=== PATIENT | male | born 1955 | race African-American/Black ===

== ENCOUNTER 2018-01-11 18:36 | Emergency (ER) | payer OTHER ==
[~2018-01-11] VITALS: Ht 182.9 cm; Wt 99.8 kg
[2018-01-11 19:17] VITALS: BP 146/77
--- NOTE | 2018-01-11 19:20 | NUR ---
TO LOBBY A/W VIA W/C, TOSHA ANG NOTED
[2018-01-11 19:21] VITALS: BP 146/77
--- NOTE | 2018-01-11 21:30 | NUR ---
PATIENT LEFT WITHOUT BEING SEEN BY DR. GRANDE. NO FURTHER CARE PROVIDED FOR PATIENT.
== END 2018-01-11 21:30 | disposition left against medical advice (07) ==
LOC: MED 18:36
DX: Z76.0 Encounter for issue of repeat prescription (principal); Z53.21 Procedure and treatment not carried out due to patient leaving prior to being seen by health care provider

== ENCOUNTER 2020-09-19 18:05 | Inpatient (IN) | payer MEDICARE, MEDICAID, SELFPAY ==
[~2020-09-19] VITALS: Ht 177.8 cm; Wt 90.7 kg
[2020-09-19 18:22] VITALS: BP 126/70
--- NOTE | 2020-09-19 18:31 | NUR ---
65 yo m [address]le from [facility] c/o poor appetite x 4 days. pt with total incontinence. in ed, pt is cooperative, aox2. clear breath sounds. abdomen soft, nontender. lower extremities spastic. pt changed into gown. positioned comfortably in bed with 2 siderails up. ermd made aware of pt status. pmh: partial paralysis , L arm meds: norco nka
[2020-09-19] MEDS ORDERED: MORPHINE SULFATE 4 MG/ML SYR IVP ONE (18:50)
--- NOTE | 2020-09-19 19:22 | NUR ---
Returned from CT.
[2020-09-19 19:23] LABS: BASOPHILS % (AUTO) 0.2 % (0.0-2.0); HEMATOCRIT 36.2 % (36-52); HEMOGLOBIN 11.9 g/dL (12.0-18.0); LYMPHOCYTES # (AUTO) 0.5 K/uL (2.0-11.5); LYMPHOCYTES % (AUTO) 4.5 % (20.5-51.1); MEAN CORPUSCULAR HEMOGLOBIN 29 pg (27-31); MEAN CORPUSCULAR HGB CONC 33 g/dL (33-37); MEAN CORPUSCULAR VOLUME 89.4 fL (80-94); MONOCYTES # (AUTO) 0.8 K/uL (0.8-1.0); MONOCYTES % (AUTO) 7.7 % (1.7-9.3); NEUTROPHILS # (AUTO) 8.8 K/uL (1.8-7.7); NEUTROPHILS % (AUTO) 87.6 % (42.2-75.2); PLATELET COUNT (AUTO) 219 K/uL (140-450); RED BLOOD CELL COUNT(AUTO) 4.05 MIL/uL (4.20-6.10); RED CELL DISTRIBUTION WIDTH 16.1 % (11.6-13.7)
[2020-09-19 19:57] LABS: ALBUMIN 3.2 g/dL (3.4-5.0); ANION GAP 24.9 (8-16); CARBON DIOXIDE 17.1 mmol/L (21-32); TOTAL BILIRUBIN 0.4 mg/dL (0.0-1.0)
[2020-09-19 20:17] LABS: CREATININE 20.8 mg/dL (0.6-1.3)
--- NOTE | 2020-09-19 20:18 | NUR ---
PT. SPIT UP BROWN LIQUID.
[2020-09-19] MEDS ORDERED: ONDANSETRON 4 MG TAB ONE (20:24)
[2020-09-19] MEDS ORDERED: DEXTROSE 50% 50 ML SYR IVP ONE (20:25)
[2020-09-19] MEDS ORDERED: NACL 0.9% 1,000 ML IV ONE ×2 (20:25→23:50)
[2020-09-19] MEDS ORDERED: INSULIN REGULAR, HUMAN 100 UNIT/ML VIAL IVP ONE (20:25)
[2020-09-19] MEDS ORDERED: SODIUM POLYSTYRENE 15 GM/60 ML UDBTL PO ONE (20:25)
[2020-09-19] MEDS ORDERED: ONDANSETRON 4 MG ODT PO ONE (20:30)
[2020-09-19] MEDS ORDERED: MORPHINE SULFATE 4 MG/ML SYR ONE (20:33)
[2020-09-19] MEDS ORDERED: CALCIUM GLUCONATE 10% 1,000 MG in NACL 0.9% 50 ML IV ONE (20:45)
[2020-09-19] MEDS ORDERED: CALCIUM GLUCONATE 10% 1000 MG/10 ML VIAL ONE (20:56)
[2020-09-19 21:02] LABS: MAGNESIUM 3.6 mg/dL (1.8-2.4)
[2020-09-19 21:09] LABS: PHOSPHORUS 12.3 mg/dL (2.5-4.9)
[2020-09-19] MEDS ORDERED: FUROSEMIDE 100 MG/10 ML VIAL IVP ONE (21:10)
[2020-09-19] MEDS ORDERED: ALBUTEROL 0.083% 2.5 MG/3 ML NEBU INH ONE (21:10)
--- NOTE | 2020-09-19 21:25 | NUR ---
REPEAT EKG DONE
--- NOTE | 2020-09-19 21:30 | NUR ---
F/C PLACED WITH > 1,000 CC RETURNED, DAYNA URINE WITH SEDIMENT AND PUSS
--- NOTE | 2020-09-19 21:32 | NUR ---
SPOKE W/ LEESA , SCREED OPERATOR REGARDING PT INFORMATION , PER LEESA SHE WILL CALL BACK IN A FEW WITH AN AUTHORIZATION ONCE SHE SPEAKS W/ HER DOCTOR.
--- NOTE | 2020-09-19 21:40 | NUR ---
URINE AND DIANA (COVID) COLLECTED BY NELSON FROM LAB.
[2020-09-19 22:08] LABS: APPEARANCE,URINE CLEAR (CLEAR); BILIRUBIN,URINE NEGATIVE (NEGATIVE); BLOOD, URINE TRACE-I (NEGATIVE); COLOR,URINE YELLOW (YELLOW); LEUKOCYTE ESTERASE ,URINE 2+ (NEGATIVE); NITRITE, URINE POSITIVE (NEGATIVE); UGLUCOSE NEGATIVE (NEGATIVE)
[2020-09-19 22:20] LABS: RBC,URINE 0-5 /HPF (0-5)
[2020-09-19 22:58] LABS: ANION GAP 21.2 (8-16); CARBON DIOXIDE 19.6 mmol/L (21-32)
[2020-09-19 23:23] LABS: CREATININE 19.9 mg/dL (0.6-1.3); POTASSIUM 6.8 mmol/L (3.5-5.1)
[2020-09-19 23:35] LABS: URINE TOTAL PROTEIN 31.3 mg/dL (0-12)
--- NOTE | 2020-09-19 23:55 | NUR ---
VBG DRAWN. COLLECTED BY RT NOEL AT BEDSIDE.
[2020-09-20] VITALS (16 sets, daily range): BP systolic 88–155; BP diastolic 36–108
[2020-09-20] MEDS ORDERED: cefTRIAXone 1,000 MG VIAL ONE (00:14)
--- NOTE | 2020-09-20 00:25 | NUR ---
2200 ML OF URINE COLLECTED FROM DEL CID CATH BAG.
[2020-09-20] MEDS ORDERED: NACL 0.9% 1,000 ML IV ONE ×2 (00:50→02:35)
[2020-09-20] MEDS ORDERED: ACETAMINOPHEN 325 MG TAB PO PRN (01:15)
[2020-09-20] MEDS ORDERED: ONDANSETRON 4 MG/2 ML VIAL IVP PRN (01:15)
--- NOTE | 2020-09-20 02:00 | NUR ---
URINE OUTPUT 1500CC
--- NOTE | 2020-09-20 04:00 | NUR ---
1100 CC URINE OUTPUT.
--- NOTE | 2020-09-20 05:25 | NUR ---
SPOKE TO TWO OF PT. SISTERS JOHANNA KING AND CALEB CAN OVER THE PHONE. THEY REQUESTED AN UPDATE ON PT. J[place] K[place] WILLIS CAN [place], PHONE # .
--- NOTE | 2020-09-20 06:37 | NUR ---
LAB AT BEDSIDE
--- NOTE | 2020-09-20 07:13 | NUR ---
CARE ENDORSED TO RY BROWNING
[2020-09-20 07:18] LABS: BASOPHILS % (AUTO) 0.1 % (0.0-2.0); HEMOGLOBIN 11.8 g/dL (12.0-18.0); LYMPHOCYTES # (AUTO) 0.4 K/uL (2.0-11.5); LYMPHOCYTES % (AUTO) 3.9 % (20.5-51.1); MEAN CORPUSCULAR HEMOGLOBIN 30 pg (27-31); MEAN CORPUSCULAR HGB CONC 34 g/dL (33-37); MEAN CORPUSCULAR VOLUME 88.3 fL (80-94); MONOCYTES # (AUTO) 0.7 K/uL (0.8-1.0); MONOCYTES % (AUTO) 7.5 % (1.7-9.3); NEUTROPHILS # (AUTO) 8.3 K/uL (1.8-7.7); NEUTROPHILS % (AUTO) 88.5 % (42.2-75.2); PLATELET COUNT (AUTO) 211 K/uL (140-450); RED BLOOD CELL COUNT(AUTO) 3.97 MIL/uL (4.20-6.10); RED CELL DISTRIBUTION WIDTH 15.8 % (11.6-13.7); WHITE BLOOD COUNT (AUTO) 9.3 K/uL (4.8-10.8)
[2020-09-20 07:40] LABS: ANION GAP 23.2 (8-16); CARBON DIOXIDE 19.9 mmol/L (21-32); POTASSIUM 5.1 mmol/L (3.5-5.1)
--- NOTE | 2020-09-20 07:41 | NUR ---
Patient will be admitted to care of Dr Cornelius. Admited to ICU. Will go to room 8. Belongings list completed. Report to Lynn RAZA.
[2020-09-20 07:43] LABS: CREATININE 16.3 mg/dL (0.6-1.3)
--- NOTE | 2020-09-20 07:55 | NUR ---
PT TAKEN TO ICU ROOM 8 AT THIS TIME
--- NOTE | 2020-09-20 08:00 | NUR ---
PT ARRIVED ON UNIT, RECEIVED REPORT FROM FRICTION PAINT MACHINE TENDER NAM. PT IS ALERT AND ORIENTED X2. PT IS CURRENTLY ON ROOM AIR SATURATING 100%, SLIGHT WHEEZE NOTED THROUGHOUT LUNGS, NO SIGNS OF RESPIRATORY DISTRESS. PT IS SR ON THE MONITOR AT THIS TIME. FOR ACCESS, PT HAS ENEIDA 18 G AND R AC 20 G. PT HAS RENAL DIET ORDERED AT THIS TIME. DEL CID CATHETER IS IN PLACE, DRAINING CLEAR YELLOW URINE. EMPTIED 2000 ML OF URINE UPON ARRIVAL. PT IS CONTRACTED IN BOTH UPPER AND LOWER EXTREMITIES. TWO SACRAL PRESSURE ULCERS/SKIN TEARS NOTED, SEVERE DRY SKIN/SCALING NOTED ON BOTH LOWER EXTREMITIES, PICTURES TAKEN. TEMPERATURE 97.4 AXILLARY. VSS. HOB IS 30 DEG WITH BED IN LOW, LOCKED POSITION.
--- NOTE | 2020-09-20 08:20 | NUR ---
[facility]SA SWAB WALKED TO LAB BY DIAL REFINISHER DAVINA
--- NOTE | 2020-09-20 09:04 | NUR ---
HEPARIN ADMINISTERED PER ORDER, PT TOLERATED WELL. NS STARTED TKO.
--- NOTE | 2020-09-20 09:16 | NUR ---
LEFT MESSAGE FOR SISTER, NEXT OF KIN RANDAL AT [phone], REQUESTING CALL BACK IN ORDER TO COMPLETE ADMISSION ASSESSMENT.
--- NOTE | 2020-09-20 09:20 | NUR ---
DR. REN AND DR. WOLF SEEING PT
[2020-09-20] MEDS: NACL 0.9% 1,000 ML IV SCH ×2 (09:51→20:01)
--- NOTE | 2020-09-20 10:32 | NUR ---
ATTEMPTED TO REACH [facility] [phone] REGARDING CURRENT MEDS, NO ANSWER, LEFT MESSAGE
[2020-09-20] MEDS ORDERED: OXYC5TAB4 PO (11:00)
[2020-09-20] MEDS ORDERED: OXYC30TE PO (11:00)
[2020-09-20] MEDS ORDERED: AMLO10TA PO (11:00)
--- NOTE | 2020-09-20 12:34 | NUR ---
BEDSIDE SWALLOW SCREENING DONE, PT ABLE TO TAKE WATER SLOWLY WITHOUT S/S OF ASPIRATION.
--- NOTE | 2020-09-20 15:36 | NUR ---
NOTIFIED DR. WOLF OF US VENOUS BLE FINDINGS OF LEFT AND RIGHT DVT. DR. WOLF ORDERED ELIQUIS 10 BID.
[2020-09-20] MEDS: APIXABAN 2.5 MG TAB PO SCH (16:01)
--- NOTE | 2020-09-20 16:10 | NUR ---
MEDICATIONS ADMINISTERED PER ORDER, PT TOLERATED WELL. PT SITTING UP IN BED ABLE TO SWALLOW PILLS WITH NO EVIDENCE OF CHOKING OR COUGHING. TEMPERATURE 97.8 AXILLARY.
--- NOTE | 2020-09-20 17:23 | NUR ---
DR. LYSSA GAMING SEEING PT
--- NOTE | 2020-09-20 18:17 | NUR ---
PT PROVIDED WITH DINNER, SITTING UP IN BED, ABLE TO FEED SELF
--- NOTE | 2020-09-20 19:00 | NUR ---
PT REQUESTED DENTURES, BUT THERE IS NO RECORD OF THE PT HAVING DENTURES IN HIS POSSESSION PER THE ER. THE BELONGING'S LIST NOTED IN ER ALSO DOES NOT HAVE DENTURES ON THE LIST. CHECKED PT'S BELONGINGS AND NO DENTURES NOTED. WILL ENDORSE TO TAXICAB DISPATCHER.
--- NOTE | 2020-09-20 19:23 | NUR ---
HANDOFF GIVEN TO NUISANCE WILDLIFE TRAPPER RN FOR CONTINUITY OF CARE
--- NOTE | 2020-09-20 19:23 | NUR ---
RECEIVED PATIENT FROM AM SHIFT NURSE FOR CONTINUITY OF CARE. ALERT AND ABLE TO MAKE NEEDS KNOWN. RESPIRATIONS EVEN, UNLABORED. NO S/S RESPIRATORY DISTRESS. S1/S2 AUSCULTATED. SKIN WARM, DRY. SALINE LOCK TO RIGHT AC 20G PATENT/INTACT. IV SITE TO RIGHT UPPER ARM 18G PATENT/INTACT, INFUSING FLUIDS WELL. NO C/O PAIN. NO S/S ACUTE DISTRESS. ABDOMEN SOFT, NONTENDER, NONDISTENDED. BOWEL SOUNDS ACTIVE x4 QUADRANTS. DEL CID CATHETER PATENT WITH YELLOW URINE DRAINING TO GRAVITY. PLAN OF CARE DISCUSSED. FREQUENT ROUNDS BY ALL STAFF. SAFETY PRECAUTIONS IN PLACE. CALL LIGHT IN REACH AT ALL TIMES.
--- NOTE | 2020-09-20 21:15 | NUR ---
PATIENT RESTING COMFORTABLY IN BED WATCHING TV. IV FLUIDS INFUSING WELL. NO C/O PAIN. CALL LIGHT IN REACH.
[2020-09-20] MEDS ORDERED: AMIODARONE 150 MG in DEXTROSE 5% 100 ML IV ONE (23:40)
--- NOTE | 2020-09-20 23:40 | NUR ---
PATIENT WITH ELEVATED HEART RATE 160s AND IRREGULAR RHYTHM. PATIENT AROUSABLE WITH NO C/O CHEST PAIN. MD NOTIFIED. ORDERS RECEIVED.
[2020-09-20] MEDS ORDERED: AMIODARONE 150 MG/3 ML VIAL IV ONE (23:47)
[2020-09-20] MEDS ORDERED: AMIODARONE 450 MG/9 ML VIAL IV ONE (23:48)
[2020-09-21] VITALS (25 sets, daily range): BP systolic 93–144; BP diastolic 47–96
[2020-09-21] MEDS: AMIODARONE 450 MG in DEXTROSE 5% 250 ML IV SCH ×3 (00:20→10:51)
[2020-09-21] MEDS ORDERED: AMIODARONE 450 MG/9 ML VIAL IV ONE (00:25)
--- NOTE | 2020-09-21 01:00 | NUR ---
PATIENT CONTINUES ON AMIODARONE DRIP. PATIENT IS ASLEEP. FREQUENT ROUNDS BY ALL STAFF. CALL LIGHT IN REACH AT ALL TIMES.
--- NOTE | 2020-09-21 03:30 | NUR ---
PATIENT IS ASLEEP.
[2020-09-21] MEDS: NACL 0.9% 1,000 ML IV SCH ×2 (04:39→12:44)
--- NOTE | 2020-09-21 05:49 | NUR ---
GAVE SISTER RANDAL AN UPDATE ON HER BROTHERS STATUS.
[2020-09-21 06:03] LABS: BASOPHILS % (AUTO) 0.2 % (0.0-2.0); EOSINOPHILS % (AUTO) 0.1 % (0.0-4.0); HEMATOCRIT 31.4 % (36-52); HEMOGLOBIN 10.5 g/dL (12.0-18.0); LYMPHOCYTES # (AUTO) 0.5 K/uL (2.0-11.5); LYMPHOCYTES % (AUTO) 7.7 % (20.5-51.1); MEAN CORPUSCULAR HEMOGLOBIN 30 pg (27-31); MEAN CORPUSCULAR HGB CONC 34 g/dL (33-37); MEAN CORPUSCULAR VOLUME 88.3 fL (80-94); MONOCYTES # (AUTO) 0.6 K/uL (0.8-1.0); MONOCYTES % (AUTO) 10.1 % (1.7-9.3); NEUTROPHILS # (AUTO) 5.2 K/uL (1.8-7.7); NEUTROPHILS % (AUTO) 81.9 % (42.2-75.2); PLATELET COUNT (AUTO) 236 K/uL (140-450); RED BLOOD CELL COUNT(AUTO) 3.55 MIL/uL (4.20-6.10); RED CELL DISTRIBUTION WIDTH 15.7 % (11.6-13.7); WHITE BLOOD COUNT (AUTO) 6.4 K/uL (4.8-10.8)
[2020-09-21 06:06] LABS: ANION GAP 14.8 (8-16); CARBON DIOXIDE 26.6 mmol/L (21-32); POTASSIUM 3.4 mmol/L (3.5-5.1)
--- NOTE | 2020-09-21 07:17 | NUR ---
ENDORSED PATIENT TO AM SHIFT NURSE FOR CONTINUITY OF CARE.
--- NOTE | 2020-09-21 07:25 | NUR ---
RECEIVED HANDOFF FROM RN NEW GRADUATE RN. PT IS ALERT AND ORIENTED X2-3. PT IS CURRENTLY ON ROOM AIR SATURATING 100%. PT IS SR ON THE MONITOR AT THIS TIME. FOR ACCESS, PT HAS ENEIDA 18 G AND R AC 20 G. NS IS RUNNING AT 125 ML/HR AND AMIODARONE AT 0.5 MG/MIN. PT HAS RENAL DIET ORDERED AT THIS TIME. DEL CID CATHETER IS IN PLACE, DRAINING CLEAR YELLOW URINE. PT IS CONTRACTED IN BOTH UPPER AND LOWER EXTREMITIES. VSS. HOB IS 30 DEG WITH BED IN LOW, LOCKED POSITION.
[2020-09-21] MEDS: APIXABAN 2.5 MG TAB PO SCH (08:18)
--- NOTE | 2020-09-21 08:27 | NUR ---
PT PROVIDED WITH BREAKFAST AND MORNING MEDICATIONS ADMINISTERED. PT TOLERATED WELL. SITTING UP IN BED, ABLE TO FEED SELF. TEMPERATURE 97.4 TEMPORALLY.
[2020-09-21] MEDS ORDERED: POTASSIUM CHLORIDE 20% 40 MEQ/15 ML UDC PO SCH (10:00)
[2020-09-21 10:06] LABS: ANION GAP 15.5 (8-16); CARBON DIOXIDE 26.9 mmol/L (21-32); POTASSIUM 3.4 mmol/L (3.5-5.1)
--- NOTE | 2020-09-21 10:30 | NUR ---
POTASSIUM REPLACEMENT ADMINISTERED PER ORDER FOR K=3.4
--- NOTE | 2020-09-21 11:54 | NUR ---
PT REPOSITIONED, GOWN CHANGED. OFFLOADED WITH PILLOWS. PT REMAINS RESTING IN BED WATCHING TV.
--- NOTE | 2020-09-21 12:06 | NUR ---
PT PROVIDED WITH LUNCH, BUT STATES THAT HE IS NOT HUNGRY AT THE MOMENT AND WILL LET US KNOW WHEN HE'S READY TO EAT
--- NOTE | 2020-09-21 12:44 | NUR ---
PT'S SISTER AND NEXT OF KIN RANDAL AT BEDSIDE VISITING. SHE REQUESTED TO SPEAK TO ROCKET TEST FIRE WORKER DURING BUSINESS HOURS IN REGARDS TO PT'S POSSIBLE PLACEMENT IN A FACILITY SINCE HE ISN'T ABLE TO TAKE CARE OF HIMSELF ANYMORE.
--- NOTE | 2020-09-21 15:30 | NUR ---
PT REMAINS RESTING IN BED, WATCHING TV. PROVIDED PT WITH JUICE. CALL LIGHT WITHIN REACH
--- NOTE | 2020-09-21 16:31 | NUR ---
DR. LYSSA GAMING SEEING PT
[2020-09-21] MEDS: NACL 0.45% 1,000 ML IV SCH (17:01)
--- NOTE | 2020-09-21 19:08 | NUR ---
HANDOFF GIVEN TO LOADING SHOVEL OILER RN FOR CONTINUITY OF CARE
--- NOTE | 2020-09-21 19:30 | NUR ---
RECEIVED REPORT AND CARE FROM DAYSHIFT RN. UPON ENTERING THE ROOM AND ARRIVING AT BEDSIDE, PATIENT ALERT AND ORIENTED X4 TO PERSON, PLACE, TIME AND EVENT, [employer] 15. PATIENT RESTING IN THE BED CALM, COMFORTABLE, WATCHING THE TV. PATIENT ON ROOM AIR, OXYGEN SATURATION AT 100%, NO SIGNS OF DISTRESS OBSERVED WHILE AT BEDSIDE OR ON THE MONITOR. PATIENT CONNECTED TO CONTINUOUS CARDIAC MONITORING, NSR HR 81, WILL CONTINUE TO CLOSELY MONITOR AND FREQUENTLY ROUND. PATIENT HAS IV SITES THAT INCLUDE RIGHT UPPER ARM 18G AND RIGHT AC 20G, DRESSING DRY, INTACT, SITES FLUSH WELL. IV DRIPS CURRENTLY RUNNING INCLUDE AMIODARONE 0.5 MG/MIN WITH MICRON FILTER APPLIED INLINE AND 0.45% NS RUNNING AT 100 ML/HR, TOLERATING WELL. PATIENT APPROXIMATE DRY WEIGHT IS 90 KG. PATIENT HAS A DEL CID CATHETER IN PLACE, INTACT, SECURED AND DRAINING WELL. PATIENT ON RENAL DIET, ABLE TO TOLERATE PO WELL. SKINS NON INTACT, SKIN TEAR RIGHT BUTTOCKS WITH FOAM DRESSING APPLIED, RIGHT LEG HEALED OLD WOUND, AND BILATERAL LEG SWELLING. PATIENT BEING OFFLOADED WITH USE OF PILLOWS AND FREQUENT REPOSITIONING. PATIENT BED LOCKED AND LOWERED INTO A POSITION OF SAFETY AND COMFORT. WILL CONTINUE TO CLOSELY MONITOR AND FREQUENTLY ROUND THROUGHOUT THE SHIFT.
--- NOTE | 2020-09-21 19:50 | NUR ---
PHONE CALL TO DR MITCHELL,REAL ESTATE MANAGEMENT SPECIALIST.UPDATED ON PTS PRESENT CONDITION.MADE AWARE THAT PT IS ON AMIODARONE DRIP , SAID TO STOP AMIODARONE DRIP PER PROTOCOL AND START METOPROLOL P.O AT 2100.NO NEED FOR AMIODARONE P.O; PTS CARDIAC RHYTHM IS NORMAL SINUS RHYTHM HR 82; BP 162/80. DR MITCHELL ALSO CHANGE THE ELIQUIS DOSE RATE, DALI RAZA AWARE
[2020-09-21] MEDS ORDERED: APIXABAN 2.5 MG TAB PO SCH ×2 (21:00)
--- NOTE | 2020-09-21 21:12 | NUR ---
PATIENT REPOSITIONED, HYGIENE, SAFETY CHECKS, ORAL CARE AND COMFORT MEASURES PROVIDED. PATIENT CONTINUES TO REST IN A POSITION OF COMFORT, WATCHING TV AND RESTING COMFORTABLY. PATIENT TOLERATING CURRENT THERAPIES WELL, NO OBVIOUS SINGS OF DISTRESS WHILE AT BEDSIDE. MONITOR SHOWS OXYGEN SATURATION OF 100% AND HR 74, NSR. WILL CONTINUE TO CLOSELY MONITOR AND FREQUENTLY ROUND.
[2020-09-21] MEDS: METOPROLOL 25 MG TAB PO SCH (21:30)
--- NOTE | 2020-09-21 22:45 | NUR ---
CALLED/PAGED FOR DR. EDWIN PRINCE FOR ADDITIONAL ORDERS. AWAITING CALLBACK.
--- NOTE | 2020-09-21 22:50 | NUR ---
DR. PINEDA RETURNED CALL, GAVE TELEPHONE ORDERS OF PRN AMBIEN PO 5 MG AND PRN NORCO 5/325. WILL CARRY OUT ORDERS. WILL CONTINUE TO REASSESS OFTEN, CLOSELY MONITOR AND FREQUENTLY ROUND.
[2020-09-21] MEDS: ZOLPIDEM 5 MG TAB PO PRN (23:27)
[2020-09-21] MEDS: HYDROcodone/APAP 5/325 MG 1 TAB TAB PO PRN (23:27)
--- NOTE | 2020-09-21 23:27 | NUR ---
PRN NORCO GIVEN ORDERED BY MD. PATIENT STATED HAVING BILATERAL LOWER LEG PAIN. WILL CONTINUE TO REASSESS OFTEN, CLOSELY MONITOR AND FREQUENTLY ROUND.
--- NOTE | 2020-09-21 23:28 | NUR ---
PRN AMBIEN GIVEN ORDERED PER MD FOR PATIENT UNABLE TO SLEEP/REST. WILL CONTINUE TO REASSESS OFTEN, CLOSELY MONITOR AND FREQUENTLY ROUND.
[2020-09-22] VITALS (14 sets, daily range): BP systolic 125–165; BP diastolic 50–73
--- NOTE | 2020-09-22 00:15 | NUR ---
PT REQUESTING JUICE; X2 BOXES GIVEN. TOLERATING PO INTAKE. NO S/S OF DISTRESS NOTED. WILL CONTINUE TO OBSERVE
--- NOTE | 2020-09-22 00:20 | NUR ---
AMIODARONE DRIP DC'D PER PROTOCOL AT THIS TIME, PATIENT RESTING IN A POSITION OF COMFORT, REPOSITIONED, HYGIENE, AND SAFETY CHECKS PROVIDED. NO SIGNS OF DISTRESS WHILE AT BEDSIDE . PATIENT ON ROOM AIR, OXYGEN SATURATION 100%HR 76, WILL CONTINUE TO REASSESS OFTEN, CLOSELY MONITOR AND FREQUENTLY ROUND.
--- NOTE | 2020-09-22 02:12 | NUR ---
PATIENT CONTINUES TO REST/SLEEP IN A POSITION OF COMFORT. REPOSITIONED AND SAFETY CHECKS PROVIDED. NO SIGNS OF DISTRESS AT BEDSIDE OR ON THE MONITOR. WILL CONTINUE TO REASSESS OFTEN, CLOSELY MONITOR AND FREQUENTLY ROUND.
[2020-09-22] MEDS: NACL 0.45% 1,000 ML IV SCH ×3 (02:33→13:35)
--- NOTE | 2020-09-22 04:25 | NUR ---
MORNING CARE OFFERED TO PATIENT, PATIENT STATED WANTING TO WAIT UNTIL AFTER HAVING BREAKFAST FIRST. PATIENT REPOSITIONED, ORAL CARE, HYGIENE AND SAFETY CHECKS PROVIDED. PATIENT CONTINUES TO BE OFFLOADED FROM PRESSURE POINTS WITH PILLOWS. NO SIGNS OF DISTRESS OBSERVED WHILE AT BEDSIDE OR ON THE MONITOR. PATIENT CONTINUES TO WATCH TV AND RESTING IN A COMFORTABLE POSITION, REDUCED STIMULI IN THE ROOM TO PROMOTE RELAXATION. WILL CONTINUE TO REASSESS OFTEN, CLOSELY MONITOR AND FREQUENTLY ROUND.
--- NOTE | 2020-09-22 05:15 | NUR ---
MORNING CARE OFFERED AGAIN TO PATIENT, PATIENT REFUSED WHEN OFFERED. WILL CONTINUE TO REASSESS OFTEN, CLOSELY MONITOR AND FREQUENTLY ROUND.
[2020-09-22 06:00] LABS: BASOPHILS % (AUTO) 0.2 % (0.0-2.0); EOSINOPHILS % (AUTO) 0.4 % (0.0-4.0); HEMATOCRIT 29.4 % (36-52); HEMOGLOBIN 9.9 g/dL (12.0-18.0); LYMPHOCYTES # (AUTO) 1.3 K/uL (2.0-11.5); LYMPHOCYTES % (AUTO) 15.2 % (20.5-51.1); MEAN CORPUSCULAR HEMOGLOBIN 30 pg (27-31); MEAN CORPUSCULAR HGB CONC 34 g/dL (33-37); MEAN CORPUSCULAR VOLUME 89.2 fL (80-94); MONOCYTES # (AUTO) 1.1 K/uL (0.8-1.0); MONOCYTES % (AUTO) 13.1 % (1.7-9.3); NEUTROPHILS % (AUTO) 71.1 % (42.2-75.2); PLATELET COUNT (AUTO) 258 K/uL (140-450); RED CELL DISTRIBUTION WIDTH 15.7 % (11.6-13.7); WHITE BLOOD COUNT (AUTO) 8.4 K/uL (4.8-10.8)
--- NOTE | 2020-09-22 06:10 | NUR ---
PATIENT ASLEEP, NO OBVIOUS SIGNS OF DISTRESS WHILE AT BEDSIDE OR ON THE MONITOR. REPOSITIONED AND SAFETY CHECKS PROVIDED. WILL CONTINUE TO REASSESS OFTEN, CLOSELY MONITOR AND FREQUENTLY ROUND.
--- NOTE | 2020-09-22 07:20 | NUR ---
RECEIVED REPORT FROM PICTURE HANGER NURSE, DALI RAZA, FOR CONTINUITY OF CARE. PATIENT IS AOX4, ABLE TO TRACK, ABLE TO MAKE NEEDS KNOWN AND LYING IN BED COMFORTABLY. SR ON THE MONITOR. ON ROOM AIR, SATURATING AT 99%. ON A RENAL DIET. DEL CID CATHETER IN PLACE, AND DRAINING TO GRAVITY. IVS ARE CLEAN, DRY, AND INTACT, ON ENEIDA 18G AND RFA 20 G, INFUSING 1/2 NS. SKIN TEAR ON RIGHT BUTTOCKS AND HEALED WOUND ON RIGHT LEG, BLE SCALY. ENGRAVER SIGNATURE, PULSE OXIMETER, AND SAFETY MEASURES IN PLACE. HEAD OF BED 30 DEGREES, BED IN LOW POSITION, AND BED LOCKED. CALL LIGHT WITHIN REACH. WILL CONTINUE TO MONITOR.
--- NOTE | 2020-09-22 07:30 | NUR ---
REPORT AND CARE ENDORSED TO DAYSHIFT RN, VS STABLE.
[2020-09-22 07:40] LABS: CARBON DIOXIDE 27.5 mmol/L (21-32); CREATININE 2.9 mg/dL (0.6-1.3); POTASSIUM 3.5 mmol/L (3.5-5.1)
--- NOTE | 2020-09-22 08:20 | NUR ---
DR. MIKAL NERI, UPDATED ON PATIENT CONDITION AND STATUS. ORDER TO DOWNGRADE TO TELEMETRY. AWARE OF IMPROVING BUN AND CREATININE. WILL CONTINUE TO MONITOR.
--- NOTE | 2020-09-22 08:38 | NUR ---
LAB CALLED FOR CRITICAL LAB, BUN 76 AND CREATININE 2.9, TRENDING DOWN. WILL NOTIFY MD WHEN ROUNDING. WILL CONTINUE TO MONITOR.
[2020-09-22] MEDS: APIXABAN 2.5 MG TAB PO SCH ×2 (09:13→20:46)
[2020-09-22] MEDS: METOPROLOL 25 MG TAB PO SCH ×2 (09:14→20:37)
--- NOTE | 2020-09-22 09:20 | NUR ---
ADMINISTERED SCHEDULED AM MEDICATIONS. PATIENT ATE ABOUT 20% OF BREAKFAST. ORAL CARE, HYGIENE CARE, DE LCID CARE, AND CHG BATH PROVIDED. REPOSITIONED PATIENT. WILL CONTINUE TO MONITOR.
--- NOTE | 2020-09-22 10:08 | NUR ---
PATIENT HAS BEEN SCREENED AND CATEGORIZED HIGH NUTRITION RISK. PATIENT WILL BE SEEN WITHIN 1-2 DAYS OF ADMISSION. 09/21/20 - 09/22/20 HUMERA SINCLAIR MBA, RD
--- NOTE | 2020-09-22 10:35 | NUR ---
DR. MARYANN NERI. UPDATED ON PATIENTS STATUS AND CONDITION. AWARE THAT PATIENT IS BEING DOWNGRADE TO TELE. WILL CONTINUE TO MONITOR.
--- NOTE | 2020-09-22 11:20 | NUR ---
CHECKED ON PATIENT. NO SIGN OF DISTRESS OR PAIN. WILL CONTINUE TO MONITOR.
--- NOTE | 2020-09-22 12:20 | NUR ---
09/22/20 RD INITIAL ASSESSMENT COMPLETED. PLEASE REFER TO NUTRITION ASSESSMENT UNDER CARE ACTIVITY FOR ESTIMATED NUTRITIONAL NEEDS. RD RECOMMENDATIONS: 1. RECOMMEND CONTINUE RENAL DIET. 2. ENCOURAGE INCREASED PO INTAKE; ASSIST NEEDED. 3. SUPPLEMENT DIET WITH ORAL 8OZ CARTONS ENSURE CLEAR TID TO HELP MEET ENERGY & PROTEIN NEEDS. 4. F/U 2-3 DAYS; HIGH RISK HUMERA STOVER MBA, MIGUEL A Addendum: 09/22/20 at [address] RECOMMEND CONTINUE CURRENT DIET RENAL SOFT CARDIAC. ADD SUPPLEMENT ENSURE CLEAR TID.
--- NOTE | 2020-09-22 12:42 | NUR ---
CHECKED ON PATIENT. NO SIGN OF DISTRESS OR PAIN. WILL CONTINUE TO MONITOR.
--- NOTE | 2020-09-22 13:05 | NUR ---
DR.PALIWAL NERI. UPDATED ON PATIENT CONDITION AND STATUS. AWARE PATIENT HEART RATE IS SR AND THAT PATIENT WILL BE DOWNGRADED TO TELE. WILL CONTINUE TO MONITOR.
--- NOTE | 2020-09-22 14:35 | NUR ---
DR. SARAH NERI. UPDATED ON PATIENT STATUS AND CONDITION. AWARE THAT BUN AND CREATININE TRENDING DOWNWARD AND THAT PATIENT IS GETTING DOWNGRADED TO TELE. WILL CONTINUE TO MONITOR.
--- NOTE | 2020-09-22 14:50 | NUR ---
PATIENT TRANSFERRED TO TELE VIA BED. WILL CONTINUE TO MONITOR.
--- NOTE | 2020-09-22 16:09 | NUR ---
ENDORSED CARE TO PK RAZA FOR CONTINUITY OF CARE.
--- NOTE | 2020-09-22 19:20 | NUR ---
ENDORSED PATIENT TO LEAD NURSE NURSE BETTE FOR CONTINUITY OF CARE. PATIENT IS IN STABLE CONDITION.
--- NOTE | 2020-09-22 19:30 | NUR ---
RECEIVED REPORT FROM DAY SHIFT NURSE, PATIENT IS AOX4, ABLE TO TRACK, ABLE TO MAKE NEEDS KNOWN SR ON THE MONITOR. ON ROOM AIR, SATURATING AT 99%. ON A RENAL DIET. DEL CID CATHETER IN PLACE, AND DRAINING TO GRAVITY. IVS ARE CLEAN, DRY, AND INTACT, ON ENEIDA 18G AND RFA 20 G, INFUSING 1/2 NS 100ML/HR. SKIN TEAR ON RIGHT BUTTOCKS AND HEALED WOUND ON RIGHT LEG, BLE SCALY. CENTRAL OFFICE INSTALLER, PULSE OXIMETER, AND SAFETY MEASURES IN PLACE. HEAD OF BED 30 DEGREES, BED IN LOW POSITION, AND BED LOCKED. CALL LIGHT WITHIN REACH. WILL CONTINUE TO MONITOR.
[2020-09-22] MEDS: HYDROcodone/APAP 5/325 MG 1 TAB TAB PO PRN (20:37)
[2020-09-22] MEDS: TAMSULOSIN 0.4 MG CAP PO SCH (20:37)
[2020-09-22] MEDS: ZOLPIDEM 5 MG TAB PO PRN (20:37)
--- NOTE | 2020-09-22 22:18 | NUR ---
PT HAS EYES CLOSED; FLACC0 NO ACUTE DISTRESS NOTED. WILL CONTINUE TO OBSERVE
[2020-09-23] VITALS: BP 125/60
--- NOTE | 2020-09-23 02:15 | NUR ---
PT ASSISTED WITH REPOSITIONING, PT TURNED TO OFFLOAD PRESSURE AREAS. WILL CONTINUE TO OBSERVE
[2020-09-23] MEDS: HYDROcodone/APAP 5/325 MG 1 TAB TAB PO PRN ×2 (02:35→09:24)
[2020-09-23 04:00] VITALS: BP 108/82
--- NOTE | 2020-09-23 04:35 | NUR ---
PT HAS EYES CLOSED; NO ACUTE DISTRESS NOTED. WILL CONTINUE TO OBSERVE
[2020-09-23 05:56] LABS: BASOPHILS % (AUTO) 0.3 % (0.0-2.0); EOSINOPHILS # (AUTO) 0.1 K/uL (0-0.4); EOSINOPHILS % (AUTO) 1.1 % (0.0-4.0); HEMATOCRIT 28.5 % (36-52); HEMOGLOBIN 9.7 g/dL (12.0-18.0); LYMPHOCYTES # (AUTO) 1.7 K/uL (2.0-11.5); LYMPHOCYTES % (AUTO) 16.6 % (20.5-51.1); MEAN CORPUSCULAR HEMOGLOBIN 30 pg (27-31); MEAN CORPUSCULAR HGB CONC 34 g/dL (33-37); MEAN CORPUSCULAR VOLUME 88.7 fL (80-94); MONOCYTES # (AUTO) 1.1 K/uL (0.8-1.0); MONOCYTES % (AUTO) 10.6 % (1.7-9.3); NEUTROPHILS # (AUTO) 7.2 K/uL (1.8-7.7); NEUTROPHILS % (AUTO) 71.4 % (42.2-75.2); PLATELET COUNT (AUTO) 241 K/uL (140-450); RED BLOOD CELL COUNT(AUTO) 3.21 MIL/uL (4.20-6.10); RED CELL DISTRIBUTION WIDTH 14.7 % (11.6-13.7)
[2020-09-23 06:24] LABS: ANION GAP 12.6 (8-16); CARBON DIOXIDE 29.4 mmol/L (21-32); CREATININE 1.6 mg/dL (0.6-1.3)
--- NOTE | 2020-09-23 07:18 | NUR ---
RECEIVED PATIENT FROM NIGHT NURSE. PATIENT IN BED SLEEPING, CHEST NOTED RISING. RESP EVEN AND UNLABORED ON ROOM AIR. NO NOTED DISTRESS AT THIS TIME. ENEIDA 18G INFUSING 1/2 NS. RAC 20G SL. HOB ELEVATED. SAFETY MEASURES IN PLACE. CALL LIGHT WITHIN REACH. WILL CONTINUE TO MONITOR.
[2020-09-23 08:00] VITALS: BP 151/70
[2020-09-23] MEDS ORDERED: POTASSIUM PHOSPHATE 30 MM in NACL 0.9% 500 ML IV SCH (09:00)
[2020-09-23] MEDS: APIXABAN 2.5 MG TAB PO SCH ×2 (09:22→20:23)
[2020-09-23] MEDS: METOPROLOL 25 MG TAB PO SCH ×2 (09:24→20:14)
--- NOTE | 2020-09-23 09:35 | NUR ---
PATIENT AWAKE, ALERT AND ORIENTED X4. RESP EVEN AND UNLABORED ON ROOM AIR. MORNING ROUTINE MEDICATIONS GIVEN. PATIENT TOLERATED WELL. IV ACCESS DISLODGED, WILL MAKE ATTEMPT TO START ANOTHER. UNABLE TO GIVE IV MEDICATION AT THIS TIME. PATIENT VERBALIZED UNDERSTANDING. NORCO GIVEN WITH MORNING MEDICATIONS FOR DISCOMFORT. LOWER BILATERAL LEGS NOTED WITH DRIED SCALY SKIN, NO OPEN AREA. SKIN WARM TO TOUCH. ABLE TO MOVE ALL TOES. PATIENT ABLE TO MAKE NEEDS KNOWN. PLAN OF CARE DISCUSSED, PATIENT VERBALIZED UNDERSTANDING. CALL LIGHT WITHIN REACH. WILL CONTINUE TO MONITOR.
[2020-09-23] MEDS: PANTOPRAZOLE 40 MG INJ VIAL IVP SCH (11:04)
--- NOTE | 2020-09-23 11:06 | NUR ---
IV ACCESS INSERTED TO LEFT FOREARM USING ASEPTIC TECHNIQUE. PATIENT TOLERATED WELL. IV ROUTINE MEDICATIONS GIVEN AT THIS TIME. PATIENT DENIED OF PAIN. NO NOTED DISTRESS. CALL LIGHT WITHIN REACH. WILL CONTINUE TO MONITOR.
[2020-09-23] MEDS: NACL 0.45% 1,000 ML IV SCH ×2 (11:07→23:37)
[2020-09-23 12:00] VITALS: BP 113/58
[2020-09-23] MEDS ORDERED: OXYCODONE HCL PO SCH (13:00)
--- NOTE | 2020-09-23 13:25 | NUR ---
PATIENT GIVEN ROUTINE MEDICATION FOR PAIN. PATIENT IN BED AWAKE AND ALERT. ABLE TO MAKE NEEDS KNOWN. RESP EVEN AND UNLABORED ON ROOM AIR. CALL LIGHT WITHIN REACH. WILL CONTINUE TO MONITOR.
[2020-09-23] MEDS: oxyCODONE 10 MG TABER PO SCH ×2 (13:32→20:14)
--- NOTE | 2020-09-23 15:06 | NUR ---
PATIENT IN BED SLEEPING, CHEST NOTED RISING. NO NOTED DISTRESS. CALL LIGHT WITHIN REACH. WILL CONTINUE TO MONITOR.
--- NOTE | 2020-09-23 15:10 | NUR ---
DISCHARGE PLANNING Order for dc planning for SNF. Spoke with pt at bedside & states is agreeable with short term SNF for rehab. [facility] ok to talk to sister but does not want to go to SNF near [place] want to stay close to this area. [facility] in the future will look into moving closer to sister. Called & spoke with Aftab at [facility], ph [phone] fax [phone], & informed need contracted SNF's. [facility] has not received any clinicals on pt to fax [facility] clinicals. [facility] order & pt info. Addendum: 09/24/20 at 0922 by Jamee Anderson CM DC ARTS AND CRAFTS INSTRUCTOR: CALLED [facility] THIS MORNING TO FOLLOW UP BUT NO ANSWER, LEFT A VOICEMAIL. WILL CONTINUE TO TRY TO GET [facility]. FAXED PACKET TO [facility]. Addendum: 09/24/20 at 1002 by Jamee Anderson CM DC ARTS AND CRAFTS INSTRUCTOR: RECEIVED A CALL FROM SIA AT [facility] [phone]. SHE STATED THAT THEY CAN CLINICALLY ACCEPT THIS PATIENT BUT SHE WANTS TO KNOW IF PATIENT WILL BE DISCHARGED WITH ANY IV ABX. Addendum: 09/24/20 at 1027 by Jamee Anderson CM DC ARTS AND CRAFTS INSTRUCTOR: SPOKE TO [facility] [phone] HE STATED THAT HE DID NOT RECEIVE THE PACKET. RE-FAXED SNF PACKET TO HIM. NOTIFIED [facility] THAT [facility] IS ABLE TO ACCEPT PATIENT, HE SAID THAT HE WILL CREATE THE AUTH.
[2020-09-23 16:00] VITALS: BP 128/71
--- NOTE | 2020-09-23 17:36 | NUR ---
PATIENT IN BED TALKING TO ROOMMATE. RESP EVEN AND UNLABORED ON ROOM AIR. DENIED OF PAIN AT THIS TIME. CALL LIGHT WITHIN REACH. WILL CONTINUE TO MONITOR.
--- NOTE | 2020-09-23 19:25 | NUR ---
ENDORSED PATIENT TO NIGHT NURSE. PATIENT IN STABLE CONDITION.
--- NOTE | 2020-09-23 19:26 | NUR ---
RECEIVED BEDSIDE REPORT FROM DAY SHIFT RN. PATIENT IS AAOX4, ABLE TO MAKE NEEDS KNOWN.RESPIRATIONS ARE EQUAL AND UNLABORED ON ROOM AIR, SATURATING AT 99%. ON A RENAL DIET. DEL CID CATHETER IN PLACE, AND DRAINING TO GRAVITY. IV ON L FA 22G CLEAN, DRY, AND INTACT, INFUSING 1/2 NS 70ML/HR. SKIN TEAR ON RIGHT BUTTOCKS OPTIFOAM IN PLACE. C/D/I. AND HEALED WOUND ON RIGHT LEG, BLE SCALY. PIER MASTER ASSISTANT, PULSE OXIMETER, AND SAFETY MEASURES IN PLACE. POC REVIEWED WITH PT. CALL LIGHT IS WITHIN REACH. WILL CONTINUE TO MONITOR.
[2020-09-23 20:00] VITALS: BP 137/65
[2020-09-23] MEDS: guaiFENesin 600 MG TABER PO SCH (20:14)
[2020-09-23] MEDS: TAMSULOSIN 0.4 MG CAP PO SCH (20:14)
--- NOTE | 2020-09-23 20:14 | NUR ---
VSS. LASHON MEDICATIONS GIVEN PER ORDERS. MED EDUCATION GIVEN. ALL SAFETY MEASURES ARE IN PLACE. WILL CONTINUE TO MONITOR.
--- NOTE | 2020-09-23 22:13 | NUR ---
ROUNDS MADE. PT IS RESTING COMFORTABLY IN BED WATCHING TV. NO S/S OF DISTRESS. CALL LIGHT IS WITHIN REACH.
[2020-09-24] VITALS: BP 130/62
--- NOTE | 2020-09-24 | NUR ---
VITAL SIGNS ARE WITHIN NORMAL LIMITS. ALL SAFETY MEASURES ARE IN PLACE. WILL CONTINUE TO MONITOR.
--- NOTE | 2020-09-24 02:22 | NUR ---
ROUNDS MADE. PT APPEARS TO BE ASLEEP CHEST RISE AND FALL NOTED. CALL LIGHT IS WITHIN REACH. WILL CONTINUE TO MONITOR.
[2020-09-24] MEDS: HYDROcodone/APAP 5/325 MG 1 TAB TAB PO PRN ×3 (03:06→17:48)
[2020-09-24 04:00] VITALS: BP 98/61
--- NOTE | 2020-09-24 04:00 | NUR ---
VITAL SIGNS ARE WITHIN NORMAL LIMITS. ALL NEEDS MET. CALL LIGHT IS WITHIN REACH. WILL CONTINUE TO MONITOR.
[2020-09-24] MEDS: oxyCODONE 10 MG TABER PO SCH ×2 (04:12→12:16)
[2020-09-24 05:19] LABS: BASOPHILS % (AUTO) 0.3 % (0.0-2.0); EOSINOPHILS # (AUTO) 0.3 K/uL (0-0.4); HEMATOCRIT 27.3 % (36-52); HEMOGLOBIN 9.1 g/dL (12.0-18.0); LYMPHOCYTES # (AUTO) 1.9 K/uL (2.0-11.5); LYMPHOCYTES % (AUTO) 16.6 % (20.5-51.1); MEAN CORPUSCULAR HEMOGLOBIN 30 pg (27-31); MEAN CORPUSCULAR HGB CONC 33 g/dL (33-37); MEAN CORPUSCULAR VOLUME 88.9 fL (80-94); MONOCYTES # (AUTO) 0.9 K/uL (0.8-1.0); MONOCYTES % (AUTO) 8.1 % (1.7-9.3); NEUTROPHILS # (AUTO) 8.1 K/uL (1.8-7.7); PLATELET COUNT (AUTO) 242 K/uL (140-450); RED BLOOD CELL COUNT(AUTO) 3.07 MIL/uL (4.20-6.10); RED CELL DISTRIBUTION WIDTH 14.9 % (11.6-13.7); WHITE BLOOD COUNT (AUTO) 11.2 K/uL (4.8-10.8)
[2020-09-24 05:38] LABS: POTASSIUM 3.1 mmol/L (3.5-5.1)
[2020-09-24 05:39] LABS: CARBON DIOXIDE 28.1 mmol/L (21-32); CREATININE 1.3 mg/dL (0.6-1.3)
--- NOTE | 2020-09-24 07:32 | NUR ---
GAVE BEDSIDE REPORT TO DAY RN. PT ENDORSED IN STABLE CONDITION.
--- NOTE | 2020-09-24 07:37 | NUR ---
PT RECEIVED FROM DIRECTOR CHILD RN. PT IS RESTING IN BED COMFORTABLY. EYES OPEN NO S/S OF DISTRESS AT THIS TIME. ALL SAFETY MEASURES ARE IN PLACE. CALL LIGHT IS WITHIN REACH
[2020-09-24 08:00] VITALS: BP 135/70
[2020-09-24] MEDS ORDERED: MAG SULF 2000 MG/WATER PREMIX 50 ML IV SCH (08:30)
--- NOTE | 2020-09-24 08:40 | NUR ---
PT AT BEDSIDE . PT TOLERATED WELL.
[2020-09-24] MEDS ORDERED: amLODIPine 5 MG TAB PO SCH (09:00)
[2020-09-24] MEDS: guaiFENesin 600 MG TABER PO SCH (09:03)
[2020-09-24] MEDS: METOPROLOL 25 MG TAB PO SCH (09:06)
[2020-09-24] MEDS: PANTOPRAZOLE 40 MG INJ VIAL IVP SCH (09:07)
[2020-09-24] MEDS: APIXABAN 2.5 MG TAB PO SCH (09:09)
--- NOTE | 2020-09-24 10:21 | NUR ---
WOUND CARE NURSE AT BEDSIDE. PT EDUCATED AND VERBALIZED UNDERSTANDING.
--- NOTE | 2020-09-24 11:04 | NUR ---
WOUND CARE EVALUATION NOTE: SKIN ASSESSMENT DONE WITH PRIMARY RN, PT. ADMITTED WITH OPEN BLISTERS TO BUTTOCKS, PER PT. "I HAS THAT FOR ALMOST A MONTH" ALSO PER PT. 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 PT IS ABLE TO MOVE AND REPOSITION BY HIMSELF, POC DISCUSSED WITH PT. AND PRIMARY RN, PT. VERBALIZES UNDERSTANDING. -MULTIPLE PARTIAL THICKNESS SKIN LOSS WITH LARGEST 2X1CM SUPERFICIAL DEPTH, WOUND BEDS ARE PINK AND MOIST NO ODOR, MILAGRO WOUND SKIN DRY AND INTACT. -BLE TO DORSAL FOOT SEVERE XEROSIS NO OPEN WOUNDS RECOMMENDATIONS: -CLEANSE BUTTOCKS WITH NS, PAT DRY, APPLY FOAM DRESSING OD AND OFFLOADING AREA -APPLY XEROFORM DRESSING TO BLE AND COVER WITH DRY DRESSING WRAP WITH KERLIX ROLLS CHANGE 3X/WK ON
[2020-09-24] MEDS ORDERED: POTASSIUM PHOSPHATE 30 MM in NACL 0.9% 500 ML IV SCH (11:15)
--- NOTE | 2020-09-24 12:00 | NUR ---
PT IN BED RESTING EATING. NO S/S OF DISTRESS AT THIS TIME.
--- NOTE | 2020-09-24 13:00 | NUR ---
MEDICATIONS GIVEN PER MD ORDER. PT TOLERATED WELL NO S/S OF DISTRESS AT THIS TIME.
[2020-09-24 14:00] VITALS: BP 106/51
[2020-09-24] MEDS ORDERED: APIX2.5 PO (15:03)
[2020-09-24] MEDS ORDERED: METO25TA PO (15:03)
[2020-09-24 15:39] VITALS: BP 106/51
--- NOTE | 2020-09-24 15:49 | NUR ---
09/24/20 RD FOLLOW UP COMPLETED PLEASE REFER TO NUTRITION ASSESSMENT UNDER CARE ACTIVITY FOR ESTIMATED NUTRITIONAL NEEDS. 1. CONTINUE CURRENT DIET RENAL SOFT DIET. 2. ENCOURAGE INCREASED PO INTAKE ABOVE 75% 3. CONTINUE ENSURE TID 4. RD WILL F/U 3-5 DAYS; MODERATE RISK EMILIA ROMO RD
--- NOTE | 2020-09-24 16:05 | NUR ---
SPOKE TO SISTER CALEB REGARDING CARE OF PT . PT STATED IT IS OKAY TO GIVE INFORMATION TO PT.
--- NOTE | 2020-09-24 16:44 | NUR ---
Discharge Planning: Pt is now agreeable to SNF; sports centre manager has arranged for pt to got to [facility]; pt will go to room [address] Iqbal. [employer] transport can be used (Auth [id number])-both gurney and wheelchair booked for the day. [facility] will update employee benefits insurance agent. Addendum: 09/24/20 at 1700 by Caterina Stover CM Transportation arranged with same auth with [employer] ([phone]); pick remover at 6:30pm.
--- NOTE | 2020-09-24 17:51 | NUR ---
PT COMPLAINS OF 6/10 PAIN . PRN MEDICATION GIVEN PER MD ORDER. PT EDUCATED AND VERBALIZED UNDERSTANDING.
--- NOTE | 2020-09-24 18:55 | NUR ---
PT LEFT UNIT VIA GURNEY WITH [facility]. FACILITY CALLED 28 TIMES NO ANSWER .PT EDUCATED
--- NOTE | 2020-09-24 19:41 | NUR ---
PT ENDORSED TO MIXED LIVESTOCK FARM WORKER RN FOR CONTINUITY OF CARE. Addendum: 09/24/20 at 1957 by Amy Polk RN RN WRONG PT
[2020-09-25] MEDS ORDERED: GAUZE TP SCH (13:00)
[2020-09-26] MEDS ORDERED: NON ADHERENT DRESSING TP SCH (09:00)
== END 2020-09-24 19:05 | DRG 299 ==
LOC: MED 18:05 → MIC 09-20 01:18 → MED 09-20 07:45 → MIC 09-20 08:00 → MED 09-20 08:16 → MTU 09-22 14:54
PROVIDERS: ADMIT Internal Medicine; ATTEND Internal Medicine
DX: I82.411 Acute embolism and thrombosis of right femoral vein (principal); G93.41 Metabolic encephalopathy; G82.50 Quadriplegia, unspecified; N13.30 Unspecified hydronephrosis; E87.1 Hypo-osmolality and hyponatremia; N17.9 Acute kidney failure, unspecified; N13.8 Other obstructive and reflux uropathy; I69.351 Hemiplegia and hemiparesis following cerebral infarction affecting right dominant side; N40.1 Benign prostatic hyperplasia with lower urinary tract symptoms; I82.402 Acute embolism and thrombosis of unspecified deep veins of left lower extremity; Z66 Do not resuscitate; E87.5 Hyperkalemia; Z20.822 Contact with and (suspected) exposure to COVID-19; E83.41 Hypermagnesemia; E83.39 Other disorders of phosphorus metabolism; N31.9 Neuromuscular dysfunction of bladder, unspecified; I48.91 Unspecified atrial fibrillation; I73.9 Peripheral vascular disease, unspecified; I89.0 Lymphedema, not elsewhere classified; I10 Essential (primary) hypertension
CPT/HCPCS: 36415; 80048; 80053; 81001; 82570; 82948; 83605; 83690; 83735; 84100; 84300; 85025; 87040; 87081; 87086; 93005; 93925; 93970; 94640; 96365; 96375; 97110; 97112; 97163-GP; 97530; 99291; C9113; J0282; J0610; J0696; J1644; J1815; J2270; J3475; J7030; J7060; J7613; Q0162

== ENCOUNTER 2021-03-12 16:37 | Emergency (ER) | payer MEDICARE, MEDICAID ==
[~2021-03-12] VITALS: Ht 182.9 cm; Wt 97.5 kg
[~2021-03-12 16:37] MED LIST: ACET-9525 PO; AMLO10TA PO; APIX2.5 PO; METO25TA PO
[2021-03-12 16:43] VITALS: BP 138/81
--- NOTE | 2021-03-12 16:55 | NUR ---
PT TAKEN TO ER BED 3 VIA W/C.
--- NOTE | 2021-03-12 17:08 | NUR ---
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 PT STATES HE HAS A CUT ON DORSAL PART OF PENIS BUT IS UNSURE HOW HE CONTRACTED THIS. ADMITS TO DYSURIA, DENIES HEMATURIA. PT TAKES NORCO AND OXYCODONE WHICH HE IS PRESCRIBED FOR HIS CHRONIC BACK AND NECK PAIN. ON ASSESSMENT SMALL LAC TO DORSAL PART OF PENIS, NO DISCHARGE. PMH: SPINAL COMPRESSION, HTN, S/P BACK AND NECK SURGERIES NKA
--- NOTE | 2021-03-12 17:28 | NUR ---
DR. GRANDE AT PT BEDSIDE FOR FURTHER EVALUATION.
--- NOTE | 2021-03-12 17:29 | NUR ---
Female Salvager accompanied male patient for PENILE Exam.
[2021-03-12] MEDS ORDERED: HYDROcodone/APAP 5/325 MG 1 TAB TAB PO ONE (17:30)
[2021-03-12] MEDS ORDERED: [UNRECOGNIZED DRUG - CODE] TP (17:36)
[2021-03-12] MEDS ORDERED: ACET-8386 PO (17:36)
[2021-03-12] MEDS ORDERED: CEPH500C16 PO (17:36)
[2021-03-12 17:52] VITALS: BP 130/77
--- NOTE | 2021-03-12 17:53 | NUR ---
Patient discharged with v/s stable. Written and verbal after care instructions given PRESSURE ULCER and explained. Patient alert, oriented and verbalized understanding of instructions. W/C ASSISTED to car. All questions addressed prior to discharge. ID band removed. Patient advised to follow up with PMD. Rx of NORCO, LIDOCAINE, AND KEFLEX given. Patient educated on indication of medication including possible reaction and side effects. Opportunity to ask questions provided and answered.
== END 2021-03-12 17:52 | disposition home or self-care (01) ==
LOC: MED 16:37
DX: N48.5 Ulcer of penis (principal); I10 Essential (primary) hypertension; Z79.899 Other long term (current) drug therapy; Z98.890 Other specified postprocedural states
CPT/HCPCS: 81002; 99283

== ENCOUNTER 2021-11-24 09:31 | Inpatient (IN) | payer MEDICARE, MEDICAID ==
[~2021-11-24] VITALS: Ht 182.9 cm; Wt 77.1 kg
[~2021-11-24 09:31] MED LIST changes: -AMLO10TA PO; -APIX2.5 PO; +LEVO250T89 PO; -METO25TA PO; +PRO5 PO; +SEVE800T6 PO; +[UNRECOGNIZED DRUG - CODE] TP
[2021-11-24 09:33] VITALS: BP 139/80
--- NOTE | 2021-11-24 09:54 | NUR ---
Lab at bedside to draw blood
--- NOTE | 2021-11-24 09:58 | NUR ---
66 Y/o Male BIBA from [facility] for c/o painful urination x 1 day. AOX4, able to make needs known. Pt is bedbound, unable to ambulate. Resp even and unlabored. Contractures noted BUE, BLE. Pt is incontinent x 2 and states it is painful when he urinates. Pmhx: Afib, HTN, CVA NKA
[2021-11-24] MEDS ORDERED: PHENAZOPYRIDINE 100 MG TAB PO ONE (10:15)
[2021-11-24 10:24] LABS: BASOPHILS # (AUTO) 0.1 K/uL (0.00-0.22); BASOPHILS % (AUTO) 0.7 % (0.0-2.0); EOSINOPHILS # (AUTO) 0.1 K/uL (0-0.4); EOSINOPHILS % (AUTO) 1.1 % (0.0-4.0); HEMATOCRIT 30.5 % (36-52); HEMOGLOBIN 9.5 g/dL (12.0-18.0); LYMPHOCYTES # (AUTO) 1.2 K/uL (2.0-11.5); LYMPHOCYTES % (AUTO) 8.7 % (20.5-51.1); MEAN CORPUSCULAR HEMOGLOBIN 27 pg (27-31); MEAN CORPUSCULAR HGB CONC 31 g/dL (33-37); MEAN CORPUSCULAR VOLUME 87.6 fL (80-94); MONOCYTES # (AUTO) 0.9 K/uL (0.8-1.0); MONOCYTES % (AUTO) 6.6 % (1.7-9.3); NEUTROPHILS % (AUTO) 82.9 % (42.2-75.2); PLATELET COUNT (AUTO) 472 K/uL (140-450); RED BLOOD CELL COUNT(AUTO) 3.48 MIL/uL (4.20-6.10); RED CELL DISTRIBUTION WIDTH 16.7 % (11.6-13.7); WHITE BLOOD COUNT (AUTO) 13.3 K/uL (4.8-10.8)
--- NOTE | 2021-11-24 10:42 | NUR ---
Note darrenone in EDM - 11/24/21 at 1404 by [facility] Patient discharged with v/s stable. Written and verbal after care instructions given and explained with teachback. Patient alert, oriented and verbalized understanding of instructions. Ambulatory with steady gait. All questions addressed prior to discharge. ID band removed. Patient advised to follow up with PMD. Rx of zofran given. Patient educated on indication of medication including possible reaction and side effects. Opportunity to ask questions provided and answered.
[2021-11-24 10:43] LABS: APPEARANCE,URINE CLEAR (CLEAR); BILIRUBIN,URINE NEGATIVE (NEGATIVE); BLOOD, URINE 1+ (NEGATIVE); COLOR,URINE YELLOW (YELLOW); LEUKOCYTE ESTERASE ,URINE 3+ (NEGATIVE); NITRITE, URINE POSITIVE (NEGATIVE); PH,URINE 8.5 (5.0-9.0); UGLUCOSE NEGATIVE (NEGATIVE)
--- NOTE | 2021-11-24 10:55 | NUR ---
Lab at bedside to collect blood cultures.
[2021-11-24] MEDS ORDERED: cefTRIAXone 1,000 MG VIAL ONE (11:06)
[2021-11-24 11:09] LABS: ALBUMIN 2.5 g/dL (3.4-5.0); ANION GAP 17.2 (8-16); CARBON DIOXIDE 23.1 mmol/L (21-32); CREATININE 2.2 mg/dL (0.6-1.3); POTASSIUM 4.3 mmol/L (3.5-5.1); TOTAL BILIRUBIN 0.3 mg/dL (0.0-1.0)
[2021-11-24 11:14] LABS: RBC,URINE 0-5 /HPF (0-5)
[2021-11-24 11:16] LABS: WBC,URINE 60-80 /HPF (0-5)
[2021-11-24] MEDS ORDERED: MORPHINE SULFATE 4 MG/ML SYR IVP ONE ×2 (12:00→15:05)
--- NOTE | 2021-11-24 12:05 | NUR ---
Pt report given to RY Dueñas. Transfer of care at this time.
--- NOTE | 2021-11-24 12:42 | NUR ---
Assumed care from Leana RAZA at this time.
--- NOTE | 2021-11-24 13:23 | NUR ---
Pt taken to CT
--- NOTE | 2021-11-24 13:37 | NUR ---
Pt returned from CT to bed 11
[2021-11-24] MEDS ORDERED: SODIUM PHOSPHATE 118 ML ENEM RC ONE (15:05)
[2021-11-24] MEDS ORDERED: MAGNESIUM CITRATE 300 ML BTL PO ONE (15:05)
--- NOTE | 2021-11-24 15:08 | NUR ---
Due to pre-existing mult wounds, hospital bed or wound bed requested from warehouse assembly worker.
[2021-11-24] MEDS ORDERED: MAGNESIUM OXIDE 400 MG TAB PO PRN (16:50)
[2021-11-24] MEDS ORDERED: ACETAMINOPHEN 325 MG TAB PO PRN (16:50)
[2021-11-24] MEDS ORDERED: MAG SULF 2000 MG/WATER PREMIX 50 ML IV PRN (16:50)
[2021-11-24] MEDS ORDERED: KCL 20 MEQ/WATER INJ PREMIX 200 ML IV PRN (16:50)
[2021-11-24] MEDS ORDERED: POTASSIUM CHLORIDE 10 MEQ TABER PO PRN (16:50)
--- NOTE | 2021-11-24 17:00 | NUR ---
Pt remains AOX4, able to make needs known. Assisted to reposition and provided pericare.
[2021-11-24] MEDS ORDERED: MORPHINE SULFATE 4 MG/ML SYR ONE (18:27)
[2021-11-24] MEDS ORDERED: MAGNESIUM CITRATE 300 ML BTL ONE (18:27)
[2021-11-24] MEDS: POLYETHYLENE GLYCOL 17 GM/PKT PO SCH (18:29)
--- NOTE | 2021-11-24 18:52 | NUR ---
Pt assisted to eat dinner by tech.
--- NOTE | 2021-11-24 19:21 | NUR ---
Pt report given to RY Ferraro. Transfer of care at this time.
--- NOTE | 2021-11-24 19:25 | NUR ---
pt is awake and alert. pt pulled to rt side for comfort.
[2021-11-24] MEDS: DOCUSATE SODIUM 100 MG GELCAP PO SCH (21:00)
--- NOTE | 2021-11-24 21:50 | NUR ---
wound pictures obtained cleansed and redressed. pt's diaper changed. f/c bag emptied at 700cc with calderon cloudy urine. good pericare rendered. pt repositioned left-side lying with pillow support.
--- NOTE | 2021-11-24 22:30 | NUR ---
RECEIVED PT FROM ER, ADMITTED TO MST UNIT, ARRIVE VIA GURNEY. PT IS AWAKE , ALERT AND ORIENTED. PT ABLE TO VERBALIZED NEEDS. BILATERAL LUNGS CLEAR, RESPIRATION EVEN, NO SOB OR DISTRESS. PT IS FULL CODE, PT IS NON AMBULATORY. SKIN IS NON INTACT, PRESSURE WOUNDS PRESENT ON RIGHT HIP, SACRALCOCCYX AND SKIN TEAR ON SCROTUM. BLE NOTED CONTRACTURE. NO VERBALIZED OF PAIN AT THIS TIME. DEL CID CATHETER PRESENT AND IS INTACT AND PATENT. PT IS ON CARDIAC DIET. ORIENT PT TO THE ROOM AND HOW TO USE THE DEVICES.
--- NOTE | 2021-11-24 22:36 | NUR ---
Patient will be admitted to care of [facility]. Admited to [facility]. Will go to [id number]. Belongings list completed. Report to rubén cardozo
--- NOTE | 2021-11-25 02:00 | NUR ---
PT IS SLEEPING SOUNDLY, NO FACIAL GRIMACING. NO SOB OR DISTRESS. CALL LIGHT WITHIN THE REACH.
[2021-11-25 04:00] VITALS: BP 93/54
--- NOTE | 2021-11-25 04:20 | NUR ---
ASSISTED PT WITH PERSONAL HYGIENE AND CLEANLINESS. PT WENT BACK TO SLEEP AFTERWARDS. NO DISTRESS OR SOB.
[2021-11-25 06:53] LABS: BASOPHILS % (AUTO) 0.4 % (0.0-2.0); EOSINOPHILS # (AUTO) 0.4 K/uL (0-0.4); EOSINOPHILS % (AUTO) 3.6 % (0.0-4.0); HEMATOCRIT 22.9 % (36-52); HEMOGLOBIN 7.2 g/dL (12.0-18.0); LYMPHOCYTES # (AUTO) 0.9 K/uL (2.0-11.5); LYMPHOCYTES % (AUTO) 8.1 % (20.5-51.1); MEAN CORPUSCULAR HEMOGLOBIN 27 pg (27-31); MEAN CORPUSCULAR HGB CONC 32 g/dL (33-37); MEAN CORPUSCULAR VOLUME 86.8 fL (80-94); MONOCYTES # (AUTO) 0.8 K/uL (0.8-1.0); MONOCYTES % (AUTO) 6.7 % (1.7-9.3); NEUTROPHILS # (AUTO) 9.2 K/uL (1.8-7.7); NEUTROPHILS % (AUTO) 81.2 % (42.2-75.2); PLATELET COUNT (AUTO) 429 K/uL (140-450); RED BLOOD CELL COUNT(AUTO) 2.64 MIL/uL (4.20-6.10); RED CELL DISTRIBUTION WIDTH 16.4 % (11.6-13.7); WHITE BLOOD COUNT (AUTO) 11.3 K/uL (4.8-10.8)
--- NOTE | 2021-11-25 07:04 | NUR ---
PT IS ON STABLE CONDITION, ON BED. PT IS NPO. ENDORSED TO DAY SHIFT NURSE FOR CONTINUITY OF PT CARE. ALL SAFETY MEASURES IN PLACE.
--- NOTE | 2021-11-25 07:05 | NUR ---
RECEIVED REPORT FROM CREDIT PRODUCTS OFFICER NURSE FOR CONTINUITY OF CARE. PATIENT ASLEEP NO DISTRESS NOTED. RESPIRATION EVEN AND NOT LABORED NO SHORTNESS OF BREATH. ALL SAFETY MEASURE IN PLACE.
[2021-11-25 07:07] LABS: ANION GAP 11.4 (8-16); CARBON DIOXIDE 26.5 mmol/L (21-32); MAGNESIUM 1.9 mg/dL (1.8-2.4); POTASSIUM 3.9 mmol/L (3.5-5.1); TOTAL BILIRUBIN 0.2 mg/dL (0.0-1.0)
[2021-11-25 08:00] VITALS: BP 128/68
--- NOTE | 2021-11-25 08:44 | NUR ---
PATIENT HAS BEEN SCREENED AND CATEGORIZED HIGH NUTRITION RISK. PATIENT WILL BE SEEN WITHIN 1-2 DAYS OF ADMISSION. CONSULT AND REFERRAL RECEIVED FOR WOUNDS/PRESSURE INJURY AND UNHEALED WOUND DANYEL REN RD
--- NOTE | 2021-11-25 09:07 | NUR ---
DR. LEE AT BED SIDE ASSESSING PATIENT.
[2021-11-25] MEDS: DOCUSATE SODIUM 100 MG GELCAP PO SCH ×2 (09:14→22:05)
[2021-11-25] MEDS: POLYETHYLENE GLYCOL 17 GM/PKT PO SCH (09:14)
[2021-11-25] MEDS: HYDROcodone/APAP 5/325 MG 1 TAB TAB PO PRN (09:21)
--- NOTE | 2021-11-25 11:15 | NUR ---
WOUND CARE EVALUATION NOTE: SKIN ASSESSMENT DONE WITH THIS 66 Y/O PT ADMITTED WITH MULTIPLE PRESSURE INJURIES. PT. ADMITTED WITH LOW JEREMIE SCALE AT HIGH RISK. POC DISCUSSED WITH PT. RECOMMEND SURGEON CONSULT FOR DEBRIDEMENT. PT. DOES NOT ANSWER. POC DISCUSSED WITH PRIMARY NURSE EVA. CONTINUE TO FOLLOW PRESSURE INJURY PREVENTION INTERVENTIONS. INTEGUMENTARY: -SEVERE MOISTURE ASSOCIATED DERMATITIS WITH FULL THICKNESS SKIN LOSS TO POSTERIOR SCROTAL AREA 5X3X0.2CM -SACRAL COCCYX HEALED SCAR TISSUE RE OPEN FULL THICKNESS SKIN LOSS 5X6X0.3CM WITH 80% OF PADILLA SLOUGH TISSUE, 20% RED GRANULATING TISSUE, MOIST, NO ODOR, MILAGRO- WOUND SKIN MOIST WITH SCARE TISSUE -PRESSURE INJURY STAGE 2 LEFT TROCHANTER 1X1X0.1CM WOUND BED PINK MOIST, NO ODOR, MILAGRO WOUND SKIN HEALED SCAR TISSUE WITH SURROUNDING TISSUE HYPERPIGMENTATION. -PRESSURE INJURY STAGE 4 LEFT LOWER ISCHIUM FULL THICKNESS SKIN LOSS 5X6X0.3CM WITH 80% OF PADILLA SLOUGH TISSUE, 20% RED GRANULATING TISSUE, MOIST, NO ODOR, MILAGRO- WOUND SKIN MOIST WITH SCARE TISSUE, NON-BLANCHABLE REDNESS AND FURTHER DAMAGE INDICATED -PRESSURE INJURY RIGHT TROCHANTER UN-STAGEABLE 4X2CM 100 % DRY BROWN ESCHAR TISSUE -PRESSURE INJURY UN-STAGEABLE RIGHT LATERAL BUTTOCK 12X5CM, WOUND BED 100% BLACK /BROWN DRY ESCHAR TISSUE, NO ODOR, MILAGRO WOUND SKIN NON-BLANCHABLE REDNESS, WITH BLISTERING SKIN AND SURROUNDING TISSUE DRY THIN EASILY TO TORN FURTHER DAMAGE INDICATED -PRESSURE INJURY STAGE 4 RIGHT LOWER BUTTOCK 4X1X0.3CM, WOUND BED 100% RED GRANULATION TISSUE MILAGRO WOUND SKIN NON-BLANCHABLE REDNESS, WITH BLISTERING SKIN AND SURROUNDING TISSUE DRY THIN EASILY TO TORN FURTHER DAMAGE INDICATED -RIGHT FEET MULTIPLE UN-STAGEABLE ULCERS 100% BROWN SCABS WITH LARGEST TO RIGHT LATERAL FOOT 2X1CM, RIGHT LATERAL MALLEOLUS 1X1CM -LEFT FEET MULTIPLE UN-STAGEABLE ULCERS 100% BROWN SCABS WITH LARGEST TO LEFT MEDIAL FOOT 1X1CM, LEFT MEDIAL MALLEOLUS 1X1CM -BILATERAL HEELS NON BLANCHABLE REDNESS, LEFT 2X3CM AND RIGHT 2X2CM, SKIN MUSHY AND INTACT RECOMMENDATIONS: -APPLY Z GUARD AND FOAM DRESSING TO SACRAL SCAR TISSUE DAILY AND PRN IF SOILING -CLEANSE LEFT TROCHANTER, LEFT LOWER ISCHIUM, RIGHT TROCHANTER, RIGHT LATERAL AND LOWER BUTTOCK AND POSTERIOR SCROTAL WOUNDS WITH NS, PAT DRY, APPLY THERAHONEY GEL TO WOUND BED AND COVER WITH DRY DRESSING QD AND PRN IF SOILING -APPLY SKIN PREP WIPE TO BILATERAL ANKLES, FEET AND HEELS AND RN HOSPICE -APPLY HEEL RAISERS TO BILATERAL HEELS AND OFFLOADING -POSITIONING: TURN AND REPOSITION PATIENT Q 2H OR SOONER USE PILLOWS TO KEEP BONY PROMINENCES FROM DIRECT CONTACT WITH SURFACES USE REPOSITIONING WEDGES TO PROVIDE 30-DEGREE ANGLE FOR SIDE LYING POSITIONS OFFLOADING OR FOAM DRESSING TO ALL TUBING TO PREVENT MEDICAL DEVICES RELATED PRESSURE INJURY -RE-EVALUATING AND MANAGING INCONTINENCE MONITOR SKIN CONDITION DURING POSITION CHANGE DO NOT MASSAGE REDNESS, BONY PROMINENCES FREQUENT MILAGRO-CARE AND PROVIDE BARRIER CREAMS PRN IF SOILING MOISTURE CONTROL BY OFFER BED VELASQUEZ/URINAL /ABSORBENT PAD TO WICK AND HOLD MOISTURE KEEP SKIN DRY AND PROTECT FROM FRICTION -MANAGE FRICTION/SHEAR/MOBILITY KEEP HOB AT THE LOWEST LEVEL OF ELEVATION NO MORE THAN 30 DEGREE UNLESS OTHERWISE CONTRAINDICATED USE LIFT SHEET OR TRANSFER DEVICE TO MOVE PATIENT AND PREVENT LATERAL SHEER. PROTECT HEELS, ELBOWS BONY PROMINENCES WITH SKIN BERRIES OR FOAM DRESSING IF EXPOSED TO FRICTION OFFLOAD BILATERAL HEELS BY PLACING PILLOWS UNDER CALVES AT ALL TIMES, UNLESS OTHERWISE CONTRAINDICATED -PRESSURE REDISTRIBUTION SURFACE THERAPY ROSS ISOFLEX CATA MATTRESS -NUTRITION: PLEASE FOLLOW RD RECOMMENDATIONS AND OFFER NUTRITION SUPPLEMENTS IF ORDERED. Addendum: 11/25/21 at 1357 by Bella Peña RN (Grace) CORRECTION: SACRAL COCCYX HEALED SCAR TISSUE , LEFT LOWER ISCHIUM NEXT TO COCCYX PI STAGE 4 FULL THICKNESS SKIN LOSS 5X6X0.3CM WITH 80% OF PADILLA SLOUGH TISSUE, 20% RED GRANULATING TISSUE, MOIST, NO ODOR, MILAGRO- WOUND SKIN MOIST WITH SCARE TISSUE
[2021-11-25] MEDS: SEVELAMER CARBONATE 800 MG TAB PO SCH ×2 (12:34→17:49)
--- NOTE | 2021-11-25 12:35 | NUR ---
I ASK THE UNIX DEVELOPER IF PATIENT HAD BOWEL MOVEMENT ALREADY AND SHE SAID PATIENT HAD BOWEL MOVEMENT ALREADY BUT PATIENT IS REQUESTING FOR ENEMA EVEN I TOLD HIM THAT HE HAD BOWEL MOVEMENT ALREADY. I TOLD HIM THAT I WILL GIVE IT TO HIM AFTER HE EAT LUNCH.
--- NOTE | 2021-11-25 13:00 | NUR ---
I DIDN'T GAVE ENEMA TO PATIENT SWISS MACHINIST SAID PATIENT HAD SOFT MODERATE AMOUNT OF BOWEL MOVEMENT INFORM PATIENT AGREED NOT TO HAVE ENEMA.
[2021-11-25] MEDS ORDERED: THERAHONEY GEL 42.5 GM TP PRN (13:30)
--- NOTE | 2021-11-25 13:50 | NUR ---
DC PLANNING: THE PATIENT ADMITTED FROM HOME WITH C/O PERSISTENT DYSURIA X 1 WEEK, PATIENT HAS INDWELLING FC AND RECENTLY COMPLETED A COURSE OF ANTIBIOTICS. GIVEN PYRIDIUM, ROCEPHIN, MORPHINE, MAG CITRATE AND FLEETS ENEMA, ADMITTED WITH DX OF UTI, IMPACTION, RENAL INSUFFICIENCY AND HYDROURETERONEPHROSIS. ORDERS FOR UROLOGY CONSULT. ELSA SPOKE WITH THE PATIENT AT BEDSIDE AND CONFIRMED HIS ADDRESS AND PHONE NUMBER. HE LIVES AT [facility] BY HIMSELF AND HAS THREE CAREGIVERS THROUGH [facility] SEVEN DAYS A WEEK FROM 7 AM TO 8 PM. HE IS ABLE TO STAND BUT HAS BECOME PROGRESSIVELY WEAKER SINCE BEING DISCHARGED FROM [facility] A MONTH AGO. HE STATES HOME HEALTH P.T. WAS ORDERED BUT THEY HAVEN'T COME YET. HE HAS DME OF A FOUR WHEEL WALKER, FWW, ELECTRIC WC AND SCOOTER. HE STATES THAT HE KNOWS HOW TO TAKE CARE OF HIS INDWELLING FC AND DOES NOT WANT TO GO TO A SNF WHEN HE IS DC'D. HE ALSO STATES THAT HE WILL NEED TRANSPORT HOME. ELSA SPOKE CANDY AT [facility], HE WILL FIND OUT WHICH HOME HEALTH IS SUPPOSED TO SEE THE PATIENT. INSURANCE DOES NOT COVER TRANSPORT HOME, IT WILL NEED TO BE ARRANGED WITH [employer] [facility] ([phone]). HIS SISTER RANDAL CAN ([phone]) IS HIS DPOA. ELSA FAXED THE ORDER FOR OUTPATIENT UROLOGY FOLLOW UP TO [facility] FOR THEM TO ARRANGE, PATIENT IS CURRENTLY NOT FOLLOWED BY UROLOGY OUTPATIENT. ELSA WILL FOLLOW. Addendum: 11/25/21 at 1550 by Sherie Tatum CM DC PLANNING: PER AFTAB AT [facility] THE PATIENT WAS REFERRED TO Slated [facility] IN THE PAST ([phone]). HE WILL BE REFERRED TO UROLOGIST SURESH SANDOVAL ([phone]). CM WILL FOLLOW. Addendum: 11/26/21 at 1449 by Sherie Tatum CM DC PLANNING: PATIENT TO HAVE DEBRIDEMENT OF THE LEFT ISCHIAL DECUBITUS WITH DR SANCHEZ TODAY, TIME NOT DETERMINED IT'S AN ADD-ON. CM WILL FOLLOW. Addendum: 11/27/21 at 1352 by Sherie Tatum CM DC PLANNING: PATIENT REFERRAL SENT TO Slated [facility]. PATIENT WILL NEED TRANSPORT ARRANGED THROUGH HOSPITAL HE STATES HE DOESN'T HAVE TRANSPORT AND HIS INSURANCE DOES NOT COVER THIS. CAN USE [employer] ([phone]). CM WILL FOLLOW Addendum: 11/27/21 at 1540 by Sherie Tatum CM DC PLANNING: PER THE ATTENDING MD PATIENT WILL NEED FOSFOMYCIN PO FOR ESBL IN THE URINE. NO PHARMACY LISTED FOR PATIENT, DR LEE WILL SPEAK WITH [facility] REGARDING COVERAGE, ELSA ASKED THE PATIENTS NURSE TO ADD THE PATIENTS PHARMACY IN THE SYSTEM SO DR LEE CAN ORDER THE MEDICATION. ELSA CONFIRMED WITH [employer] ([phone]) THAT HE IS ACCEPTED ON SERVICE WITH THEM. ELSA WILL FOLLOW.
--- NOTE | 2021-11-25 14:00 | NUR ---
PATIENT CALLED AND ASKED FOR LEG TO STRETCH AND REPOSITIONED TOLERATED WELL.
--- NOTE | 2021-11-25 14:28 | NUR ---
11/25/21 RD INITIAL ASSESSMENT COMPLETED PLEASE REFER TO NUTRITION ASSESSMENT UNDER CARE ACTIVITY FOR ESTIMATED NUTRITIONAL NEEDS. 1. CONTINUE CARDIAC DIET TOLERATED 2. RECOMMEND ENSURE 1X/DAY + ALISON BID FOR WOUND HEALING NUTRITION THERAPY -[facility]SURE WILL PROVIDE 350 KCAL AND 20 G PROTEIN, DAILY -ALISON WILL PROVIDE 180 KCAL, AND 5 G PROTEIN, DAILY. 3. RD TO FOLLOW-UP 3-5 DAYS, MODERATE RISK REVIEWED BY DANYEL REN RD
[2021-11-25 16:00] VITALS: BP 144/72
--- NOTE | 2021-11-25 16:54 | NUR ---
PATIENT RESTING NO DISTRESS NOTED. OFFERED FLUID AND HE REQUEST FOR GRAPE JUICE REQUEST GRANTED. CALL LAIT WITH IN EASY REACH.
--- NOTE | 2021-11-25 18:05 | NUR ---
PATIENT GIVEN RENVELA AND REQUESTING FOR ENEMA ORDER NOTED AND CARRIED OUT PER DR. LEE.
[2021-11-25] MEDS: SODIUM PHOSPHATE 118 ML ENEM RC PRN (18:11)
--- NOTE | 2021-11-25 18:27 | NUR ---
ENEMA GIVEN AND REPOSITION PATIENT.
--- NOTE | 2021-11-25 19:24 | NUR ---
GAVE REPORT TO SCALE ATTENDANT NURSE FOR CONTINUITY OF CARE.
--- NOTE | 2021-11-25 19:25 | NUR ---
RECEIVED ENDORSEMENT FROM DAY SHIFT NURSE FOR CONTINUITY OF PT CARE. PT IS ON BED, AWAKE, ALERT AND VERBALLY NEEDS. RESPIRATION EVEN, NO SOB OR DISTRESS. IV SALINE LOCK ON RIGHT HAND 22G INTACT AND PATENT. ASSISTED WITH HIS NEEDS AND REPOSITIONED HIM.
--- NOTE | 2021-11-25 19:35 | NUR ---
DR. SANCHEZ CAME AND DID ASSESSMENT EVALUATION TO PT'S WOUND FOR DEBRIDEMENT. PER MD, PROCEDURE WILL BE DONE TOMORROW. NO NEW ORDER.
[2021-11-25 20:00] VITALS: BP 154/60
--- NOTE | 2021-11-25 20:15 | NUR ---
WOUND CARE GIVEN.
--- NOTE | 2021-11-26 07:19 | NUR ---
PT IS ON STABLE CONDITION, AWAKE, ALERT AND VERBALLY RESPONSIVE. NO SOB OR DISTRESS. ALL SAFETY MEASURES IN PLACE. CALL LIGHT WITHIN THE REACH. ENDORSED TO DAY SHIFT NURSE FOR CONTINUITY OF PT CARE.
--- NOTE | 2021-11-26 07:20 | NUR ---
RECEIVED ENDORSEMENT FROM PLANT CONTROLS SPECIALIST NURSE FOR CONTINUITY OF CARE. PATIENT AWAKE VERBALLY RESPONSIVE. NO DISTRESS NOTED. RESPIRATION EVEN AND NOT LABORED NO SHORTNESS OF BREATH. ON ROOM AIR . IV SITE ON RIGHT HAND RENAN 18 SALINE LOCK. PATIENT NPO FOR WOUND DEBRIDEMENT. ALL SAFETY MEASURE IN PLACE. REPOSITION PATIENT.
[2021-11-26 07:26] LABS: BASOPHILS % (AUTO) 0.3 % (0.0-2.0); EOSINOPHILS # (AUTO) 0.4 K/uL (0-0.4); EOSINOPHILS % (AUTO) 2.9 % (0.0-4.0); HEMATOCRIT 23.9 % (36-52); HEMOGLOBIN 7.7 g/dL (12.0-18.0); LYMPHOCYTES % (AUTO) 7.9 % (20.5-51.1); MEAN CORPUSCULAR HEMOGLOBIN 28 pg (27-31); MEAN CORPUSCULAR HGB CONC 32 g/dL (33-37); MEAN CORPUSCULAR VOLUME 86.7 fL (80-94); MONOCYTES # (AUTO) 0.7 K/uL (0.8-1.0); MONOCYTES % (AUTO) 5.3 % (1.7-9.3); NEUTROPHILS # (AUTO) 10.6 K/uL (1.8-7.7); NEUTROPHILS % (AUTO) 83.6 % (42.2-75.2); PLATELET COUNT (AUTO) 459 K/uL (140-450); RED BLOOD CELL COUNT(AUTO) 2.76 MIL/uL (4.20-6.10); RED CELL DISTRIBUTION WIDTH 16.8 % (11.6-13.7); WHITE BLOOD COUNT (AUTO) 12.6 K/uL (4.8-10.8)
[2021-11-26 07:30] LABS: ALBUMIN 1.9 g/dL (3.4-5.0); ANION GAP 13.8 (8-16); CARBON DIOXIDE 25.2 mmol/L (21-32); CREATININE 1.7 mg/dL (0.6-1.3); MAGNESIUM 1.9 mg/dL (1.8-2.4); TOTAL BILIRUBIN 0.2 mg/dL (0.0-1.0)
[2021-11-26] MEDS: SEVELAMER CARBONATE 800 MG TAB PO SCH ×3 (08:00→17:00)
--- NOTE | 2021-11-26 08:14 | NUR ---
MARY JENKINS NPO FOR WOUND DEBRIDEMENT.
[2021-11-26] MEDS: DOCUSATE SODIUM 100 MG GELCAP PO SCH ×2 (08:25→21:44)
[2021-11-26] MEDS: POLYETHYLENE GLYCOL 17 GM/PKT PO SCH (08:25)
[2021-11-26] MEDS: HYDROcodone/APAP 5/325 MG 1 TAB TAB PO PRN ×2 (08:35→13:28)
--- NOTE | 2021-11-26 09:00 | NUR ---
DR. JESUS MASON THE PATIENT.
--- NOTE | 2021-11-26 10:40 | NUR ---
PATIENT ALERT IV ANTIBIOTIC DONE INFUSING NO ADVERSE REACTION NOTED. NO FEVER CHILLS. CONTINUE TO BE NPO. DEL CID CATHETER DRAINING YELLOW URINE WITH SLIGHT SEDIMENTATION CALL LIGHT WITH IN EASY REACH.
[2021-11-26] MEDS: SODIUM PHOSPHATE 118 ML ENEM RC PRN (12:04)
--- NOTE | 2021-11-26 12:37 | NUR ---
PATIENT STILL COMPLAIN OF CONSTIPATION GIVEN ENEMA. REPOSITIONED TOLERATED WELL. PATIENT ASKING FOR JUICE REMINDED THAT HE IS ON NPO FOR WOUND DEBRIDEMENT VERBALIZED UNDERSTANDING.
[2021-11-26] MEDS: THERAHONEY GEL 42.5 GM TP SCH (13:25)
[2021-11-26] MEDS: Z-GUARD PASTE TP SCH (13:26)
--- NOTE | 2021-11-26 14:30 | NUR ---
PATIENT HAD BOWEL MOVEMENT FORM EXTRA LARGE. WOUND CLEANSE AND DRESSING CHANGE TOLERATED WELL. PATIENT VERBALIZED RELIEF FROM HAVING LARGE BOWEL MOVEMENT.
[2021-11-26] MEDS ORDERED: BUPIVACAINE-MPF/EPI 0.25% 10 ML VIAL INJ ONE (16:12)
[2021-11-26] MEDS ORDERED: LIDOCAINE 1% 500 MG/50 ML VIAL ONE (16:12)
--- NOTE | 2021-11-26 16:25 | NUR ---
PATIENT ALERT ORIENTED WHEELED BY OR STAFF FOR HIS WOUND DEBRIDEMENT. PATIENT STILL ON NPO AND ALERT AND ON STABLE CONDITION. DEL CID CATHETER INTACT DRAINING YELLOW URINE NO HEMATURIA BUT WITH SLIGHT SEDIMENTATIONS.
[2021-11-26] MEDS ORDERED: PROPOFOL 200 MG/20 ML VIAL IV ONE (17:51)
[2021-11-26] MEDS ORDERED: ePHEDrine 50 MG/ML VIAL ONE (17:53)
[2021-11-26] MEDS ORDERED: LABETALOL 20 MG/4 ML VIAL IVP PRN (18:12)
[2021-11-26] MEDS ORDERED: hydrALAZINE 20 MG/ML VIAL IVP PRN (18:12)
[2021-11-26] MEDS ORDERED: HYDROmorphone 1 MG/ML AMP IVP PRN (18:15)
[2021-11-26] MEDS ORDERED: ONDANSETRON 4 MG/2 ML VIAL IVP PRN (18:15)
--- NOTE | 2021-11-26 18:49 | NUR ---
AT 1845 PATIENT CAME BACK FROM [facility] WHEELED BY OR STAFF PATIENT AWAKE ON STABLE CONDITION. MAKE PAIENT SITUATED AND SILK WASHING MACHINE OPERATOR FEED PATIENT DINNER. DENIES PAIN AT THIS TIME. VITAL SIGN STABLE.
[2021-11-26] MEDS: NACL 0.9% 1,000 ML IV SCH (18:57)
--- NOTE | 2021-11-26 19:16 | NUR ---
PATIENT FINISHED EATING AND ASK FOR ANOTHER SANDWICH BRAKE HOLDER ASSISTED PATIENT. GAVE REPORT TO REGISTERED NURSE BEHAVIORAL HEALTH NURSE FOR CONTINUITY OF CARE.
--- NOTE | 2021-11-26 19:35 | NUR ---
RECEIVED PT FROM AM NURSE FOR CONTINUITY OF CARE. PT CAME BACK FROM OR FOR DEBRIDEMENT OF WOUND. PT IS STABLE
--- NOTE | 2021-11-26 21:30 | NUR ---
ALL SCHEDULED MEDICATIONS GIVEN,NO ADVERSE REACTIONS NOTED
--- NOTE | 2021-11-27 02:00 | NUR ---
PATIENT ASLEEP,BREATHING EVEN AND UNLABORED,NO DISTRESS NOTED
[2021-11-27] MEDS: NACL 0.9% 1,000 ML IV SCH ×2 (04:15→16:09)
[2021-11-27 06:08] LABS: BASOPHILS # (AUTO) 0.1 K/uL (0.00-0.22); BASOPHILS % (AUTO) 0.6 % (0.0-2.0); EOSINOPHILS # (AUTO) 0.3 K/uL (0-0.4); EOSINOPHILS % (AUTO) 3.3 % (0.0-4.0); HEMATOCRIT 21.2 % (36-52); LYMPHOCYTES # (AUTO) 1.1 K/uL (2.0-11.5); LYMPHOCYTES % (AUTO) 12.3 % (20.5-51.1); MEAN CORPUSCULAR HEMOGLOBIN 28 pg (27-31); MEAN CORPUSCULAR HGB CONC 33 g/dL (33-37); MEAN CORPUSCULAR VOLUME 86.6 fL (80-94); MONOCYTES # (AUTO) 0.5 K/uL (0.8-1.0); MONOCYTES % (AUTO) 6.3 % (1.7-9.3); NEUTROPHILS # (AUTO) 6.8 K/uL (1.8-7.7); NEUTROPHILS % (AUTO) 77.5 % (42.2-75.2); PLATELET COUNT (AUTO) 432 K/uL (140-450); RED BLOOD CELL COUNT(AUTO) 2.45 MIL/uL (4.20-6.10); RED CELL DISTRIBUTION WIDTH 16.8 % (11.6-13.7); WHITE BLOOD COUNT (AUTO) 8.8 K/uL (4.8-10.8)
[2021-11-27 06:25] LABS: HEMOGLOBIN 6.9 g/dL (12.0-18.0)
[2021-11-27 07:08] LABS: ALBUMIN 1.9 g/dL (3.4-5.0); ANION GAP 13.8 (8-16); CARBON DIOXIDE 25.4 mmol/L (21-32); CREATININE 1.8 mg/dL (0.6-1.3); POTASSIUM 4.2 mmol/L (3.5-5.1); TOTAL BILIRUBIN 0.1 mg/dL (0.0-1.0)
[2021-11-27] MEDS: SEVELAMER CARBONATE 800 MG TAB PO SCH ×3 (08:20→16:15)
[2021-11-27] MEDS: DOCUSATE SODIUM 100 MG GELCAP PO SCH ×2 (08:21→20:15)
[2021-11-27] MEDS: POLYETHYLENE GLYCOL 17 GM/PKT PO SCH (08:22)
--- NOTE | 2021-11-27 10:58 | NUR ---
Patient's Hgb 6.9. Waiting for blood type and screen to be drawn.
--- NOTE | 2021-11-27 12:42 | NUR ---
MD Jim López gave telephone consent for blood transfusion consent since he already left the unit. Patient also gave consent. 2 RN verification done.
[2021-11-27] MEDS: THERAHONEY GEL 42.5 GM TP SCH (13:11)
[2021-11-27] MEDS: Z-GUARD PASTE TP SCH (13:12)
--- NOTE | 2021-11-27 14:51 | NUR ---
Let MD Jim López know lab called saying urine culture had ESBL Addendum: 11/27/21 at 1547 by Agency 11 RY RAZA asked if blood cultures were ordered. Let know blood cultures were drawn and we are still waiting for final results.
--- NOTE | 2021-11-27 15:45 | NUR ---
Transfusing 1u PRBC. Patient tolerating transfusion well. No reactions.
[2021-11-27] MEDS: MORPHINE SULFATE 2 MG/ML SYR IVP PRN ×2 (16:17→21:57)
--- NOTE | 2021-11-27 16:28 | NUR ---
Per ELSA,Pat, asked patient what preferred pharmacy is and patient said the [facility] (already in chart) is his preferred.
[2021-11-27 20:00] VITALS: BP 149/62
[2021-11-28 04:53] VITALS: BP 131/65
[2021-11-28 06:21] LABS: BASOPHILS % (AUTO) 0.4 % (0.0-2.0); EOSINOPHILS # (AUTO) 0.4 K/uL (0-0.4); EOSINOPHILS % (AUTO) 4.2 % (0.0-4.0); HEMATOCRIT 25.2 % (36-52); HEMOGLOBIN 8.2 g/dL (12.0-18.0); LYMPHOCYTES # (AUTO) 1.1 K/uL (2.0-11.5); LYMPHOCYTES % (AUTO) 10.8 % (20.5-51.1); MEAN CORPUSCULAR HEMOGLOBIN 28 pg (27-31); MEAN CORPUSCULAR HGB CONC 33 g/dL (33-37); MEAN CORPUSCULAR VOLUME 86.6 fL (80-94); MONOCYTES # (AUTO) 0.6 K/uL (0.8-1.0); MONOCYTES % (AUTO) 5.9 % (1.7-9.3); NEUTROPHILS # (AUTO) 8.3 K/uL (1.8-7.7); NEUTROPHILS % (AUTO) 78.7 % (42.2-75.2); PLATELET COUNT (AUTO) 452 K/uL (140-450); RED BLOOD CELL COUNT(AUTO) 2.91 MIL/uL (4.20-6.10); RED CELL DISTRIBUTION WIDTH 16.3 % (11.6-13.7); WHITE BLOOD COUNT (AUTO) 10.5 K/uL (4.8-10.8)
[2021-11-28 06:23] LABS: ANION GAP 10.7 (8-16); CARBON DIOXIDE 26.5 mmol/L (21-32); CREATININE 1.5 mg/dL (0.6-1.3); MAGNESIUM 1.9 mg/dL (1.8-2.4); POTASSIUM 4.2 mmol/L (3.5-5.1); TOTAL BILIRUBIN 0.2 mg/dL (0.0-1.0)
[2021-11-28] MEDS: POLYETHYLENE GLYCOL 17 GM/PKT PO SCH (09:31)
[2021-11-28] MEDS: MORPHINE SULFATE 2 MG/ML SYR IVP PRN (09:31)
[2021-11-28] MEDS: SEVELAMER CARBONATE 800 MG TAB PO SCH ×2 (09:31→11:46)
[2021-11-28] MEDS: DOCUSATE SODIUM 100 MG GELCAP PO SCH (09:32)
[2021-11-28] MEDS ORDERED: FOSF3PAC PO (10:32)
[2021-11-28] MEDS ORDERED: ERTAPENEM SODIUM 1,000 MG in NACL 0.9% 50 ML IV SCH (12:00)
--- NOTE | 2021-11-28 12:04 | NUR ---
PT WITH DISCHARGE ORDER FOR HOME WILL FOLOLOW UP WITH MILLING SUPERVISOR
[2021-11-28] MEDS: Z-GUARD PASTE TP SCH (13:00)
[2021-11-28] MEDS: THERAHONEY GEL 42.5 GM TP SCH (13:00)
--- NOTE | 2021-11-28 13:30 | NUR ---
SPOKE WITH CAREGIVER TOM AT [phone] SHE WILL BE HOME AT 4PM TO RECEIVE PT MADE AWARE OF PICKUP TIME AT 4PM
[2021-11-28] MEDS: HYDROcodone/APAP 5/325 MG 1 TAB TAB PO PRN (15:28)
--- NOTE | 2021-11-28 16:19 | NUR ---
PT DISCHARGED [facility] IN TO CONSERVATION BIOLOGY PROFESSOR PT PT LEFT VIA GOURNEY STABLE NO ACUT DISTRESS NOTEDE
--- NOTE | 2021-11-28 16:21 | NUR ---
JUAREZ DISCONTINUED DEL CID IN PLACE AND PATENT PT MADE AWARE OF UROLOGY APPOINTMENT
== END 2021-11-28 16:30 | disposition home or self-care (01) | DRG 673 ==
LOC: MED 09:31 → MTU 16:49 → OBSVTOIN 11-26 12:21
PROVIDERS: ADMIT Internal Medicine; ATTEND Internal Medicine
PROC: 0JB70ZZ Excision of Back Subcutaneous Tissue and Fascia, Open Approach (ICD-10-PCS; principal; 2021-11-26 14:20)
PROC: 30233N1 Transfusion of Nonautologous Red Blood Cells into Peripheral Vein, Percutaneous Approach (ICD-10-PCS; 2021-11-27)
DX: T83.511A Infection and inflammatory reaction due to indwelling urethral catheter, initial encounter (principal); L89.314 Pressure ulcer of right buttock, stage 4; E44.1 Mild protein-calorie malnutrition; I96 Gangrene, not elsewhere classified; N13.6 Pyonephrosis; N17.9 Acute kidney failure, unspecified; K56.41 Fecal impaction; I48.91 Unspecified atrial fibrillation; I25.10 Atherosclerotic heart disease of native coronary artery without angina pectoris; Z20.822 Contact with and (suspected) exposure to COVID-19; I12.9 Hypertensive chronic kidney disease with stage 1 through stage 4 chronic kidney disease, or unspecified chronic kidney disease; N18.9 Chronic kidney disease, unspecified; Z79.891 Long term (current) use of opiate analgesic; Z79.899 Other long term (current) drug therapy
CPT/HCPCS: G0378 ×32; 36415; 80053; 81001; 83605; 83735; 85025; 86886; 86900; 86901; 86920; 87040; 87081; 87086; 88304; J0696; J1335; J2001; J2270; J2704; J3490; J7030; J7060; P9016

== ENCOUNTER 2021-12-16 13:13 | Emergency (ER) | payer MEDICARE, MEDICAID ==
[~2021-12-16] VITALS: Ht 182.9 cm; Wt 79.4 kg
[~2021-12-16 13:13] MED LIST changes: +FOSF3PAC PO; -LEVO250T89 PO; -PRO5 PO; -[UNRECOGNIZED DRUG - CODE] TP
[2021-12-16 13:19] VITALS: BP 118/65
[2021-12-16 14:00] LABS: BASOPHILS % (AUTO) 0.5 % (0.0-2.0); EOSINOPHILS # (AUTO) 0.7 K/uL (0-0.4); HEMATOCRIT 24.5 % (36-52); LYMPHOCYTES # (AUTO) 0.9 K/uL (2.0-11.5); LYMPHOCYTES % (AUTO) 13.3 % (20.5-51.1); MEAN CORPUSCULAR HEMOGLOBIN 29 pg (27-31); MEAN CORPUSCULAR HGB CONC 33 g/dL (33-37); MEAN CORPUSCULAR VOLUME 87.4 fL (80-94); MONOCYTES # (AUTO) 0.4 K/uL (0.8-1.0); MONOCYTES % (AUTO) 6.2 % (1.7-9.3); NEUTROPHILS # (AUTO) 4.8 K/uL (1.8-7.7); PLATELET COUNT (AUTO) 316 K/uL (140-450); RED CELL DISTRIBUTION WIDTH 16.9 % (11.6-13.7); WHITE BLOOD COUNT (AUTO) 6.8 K/uL (4.8-10.8)
[2021-12-16 14:22] LABS: ALBUMIN 2.4 g/dL (3.4-5.0); ANION GAP 11.8 (8-16); CARBON DIOXIDE 29.2 mmol/L (21-32); CREATININE 2.1 mg/dL (0.6-1.3); TOTAL BILIRUBIN 0.2 mg/dL (0.0-1.0)
[2021-12-16] MEDS ORDERED: CIPR500T4 PO (14:36)
[2021-12-16 15:20] LABS: APPEARANCE,URINE SL CLOUDY (CLEAR); BILIRUBIN,URINE NEGATIVE (NEGATIVE); BLOOD, URINE 3+ (NEGATIVE); COLOR,URINE YELLOW (YELLOW); LEUKOCYTE ESTERASE ,URINE 2+ (NEGATIVE); NITRITE, URINE POSITIVE (NEGATIVE); PH,URINE 5.5 (5.0-9.0); UGLUCOSE NEGATIVE (NEGATIVE)
[2021-12-16 15:33] LABS: OTHER CASTS, URINE None Seen /LPF (None Seen); RBC,URINE 11-20 (MOD) /HPF (0-5)
[2021-12-16 15:54] VITALS: BP 126/65
== END 2021-12-16 17:05 | disposition home or self-care (01) ==
LOC: MED 13:13
DX: T83.091A Other mechanical complication of indwelling urethral catheter, initial encounter (principal); N39.0 Urinary tract infection, site not specified; Z79.899 Other long term (current) drug therapy; Z98.890 Other specified postprocedural states; Y84.6 Urinary catheterization as the cause of abnormal reaction of the patient, or of later complication, without mention of misadventure at the time of the procedure; Y92.89 Other specified places as the place of occurrence of the external cause
CPT/HCPCS: 36415; 80053; 81001; 85025; 87086; 99283

== ENCOUNTER 2022-01-15 10:17 | Inpatient (IN) | payer MEDICARE, MEDICAID ==
[~2022-01-15] VITALS: Ht 182.9 cm; Wt 73.5 kg
[~2022-01-15 10:17] MED LIST changes: +CIPR500T4 PO
--- NOTE | 2022-01-15 10:24 | NUR ---
PT BIBA TO BED 09.
[2022-01-15 10:28] VITALS: BP 120/62
--- NOTE | 2022-01-15 10:33 | NUR ---
ROSALINA FROM [facility] C/O TESTICULAR PAIN ONSET LAST NIGHT AFTER URINARY CATHETER REMOVAL. PT HAD HX UTI AND HAD CATHETER REMOVED YESTERDAY. DENIES DYSURIA OR HEMATURIA. STATES ALSO HAS CHRONIC BACK PAIN. NONAMBULATORY. VITALS STABLE. STATES 8/10 PAIN. AAOX4.
--- NOTE | 2022-01-15 11:14 | NUR ---
HALI SARAVIA update given, call if admitted or sent back, states pt does not have keita to apartment
[2022-01-15 11:25] LABS: BASOPHILS # (AUTO) 0.1 K/uL (0.00-0.22); BASOPHILS % (AUTO) 0.8 % (0.0-2.0); EOSINOPHILS # (AUTO) 0.2 K/uL (0-0.4); EOSINOPHILS % (AUTO) 2.7 % (0.0-4.0); HEMATOCRIT 22.4 % (36-52); HEMOGLOBIN 7.1 g/dL (12.0-18.0); LYMPHOCYTES # (AUTO) 0.7 K/uL (2.0-11.5); LYMPHOCYTES % (AUTO) 7.5 % (20.5-51.1); MEAN CORPUSCULAR HEMOGLOBIN 26 pg (27-31); MEAN CORPUSCULAR HGB CONC 32 g/dL (33-37); MEAN CORPUSCULAR VOLUME 82.2 fL (80-94); MONOCYTES # (AUTO) 0.4 K/uL (0.8-1.0); MONOCYTES % (AUTO) 4.5 % (1.7-9.3); NEUTROPHILS # (AUTO) 7.6 K/uL (1.8-7.7); NEUTROPHILS % (AUTO) 84.5 % (42.2-75.2); PLATELET COUNT (AUTO) 544 K/uL (140-450); RED BLOOD CELL COUNT(AUTO) 2.72 MIL/uL (4.20-6.10); RED CELL DISTRIBUTION WIDTH 17.4 % (11.6-13.7)
--- NOTE | 2022-01-15 11:44 | NUR ---
unsuccessful attempt at marin catheter with 16fr and reattempted with 16fr coudet but also unsuccessful. ermd aware. handoff report given to lauren montana. will attempt again with a 14fr coudet once received from central supply.
--- NOTE | 2022-01-15 11:45 | NUR ---
Patient noted to have existing wounds upon arrival to ER. Photos taken of wound and placed in chart. wound present on b/l buttock, b/l foot and ankle, and mid sacral. Physician informed.
[2022-01-15 11:46] LABS: ALBUMIN 1.9 g/dL (3.4-5.0); ANION GAP 13.4 (8-16); CARBON DIOXIDE 25.4 mmol/L (21-32); CREATININE 1.5 mg/dL (0.6-1.3); POTASSIUM 3.8 mmol/L (3.5-5.1); TOTAL BILIRUBIN 0.1 mg/dL (0.0-1.0)
--- NOTE | 2022-01-15 11:47 | NUR ---
ulcer noted on testicle. wound examined by ermd.
[2022-01-15 14:32] LABS: APPEARANCE,URINE CLEAR (CLEAR); BILIRUBIN,URINE NEGATIVE (NEGATIVE); BLOOD, URINE 1+ (NEGATIVE); COLOR,URINE YELLOW (YELLOW); LEUKOCYTE ESTERASE ,URINE 1+ (NEGATIVE); NITRITE, URINE NEGATIVE (NEGATIVE); UGLUCOSE NEGATIVE (NEGATIVE)
[2022-01-15] MEDS ORDERED: PIPERACILLIN/TAZOBACTAM 3.375 GM in DEXTROSE 5% 50 ML IV ONE (14:45)
[2022-01-15] MEDS ORDERED: PIPERACILLIN/TAZOBACTAM 3.375 GM VIAL IV ONE (14:53)
[2022-01-15 14:58] LABS: RBC,URINE 11-20 (MOD) /HPF (0-5)
[2022-01-15 14:59] LABS: OTHER CASTS, URINE None Seen /LPF (None Seen)
[2022-01-15] MEDS ORDERED: MORPHINE SULFATE 4 MG/ML SYR IVP ONE (15:30)
[2022-01-15] MEDS ORDERED: MORPHINE SULFATE 4 MG/ML SYR ONE (15:32)
[2022-01-15] MEDS ORDERED: ACETAMINOPHEN 325 MG TAB PO PRN (17:00)
[2022-01-15] MEDS ORDERED: MAG SULF 2000 MG/WATER PREMIX 50 ML IV PRN (17:00)
[2022-01-15] MEDS ORDERED: ONDANSETRON 4 MG/2 ML VIAL IVP PRN (17:00)
[2022-01-15] MEDS ORDERED: POTASSIUM CHLORIDE 10 MEQ TABER PO PRN (17:00)
[2022-01-15] MEDS ORDERED: MAGNESIUM OXIDE 400 MG TAB PO PRN (17:00)
[2022-01-15] MEDS ORDERED: KCL 20 MEQ/WATER INJ PREMIX 200 ML IV PRN (17:00)
[2022-01-15] MEDS: NACL 0.9% 1,000 ML IV SCH (17:36)
--- NOTE | 2022-01-15 18:37 | NUR ---
Patient will be admitted to care of [facility]. Will go to room 124A. Belongings list completed.
--- NOTE | 2022-01-15 21:20 | NUR ---
ROUNDS - FOUND OUT NO EXISTING IVF - BUT IF THE EMAR THERE IS EXISTING IVF RECORDED - WILL HOOK IVF AND WILL GIVE ROCEPHIN TIV ORDERED .
[2022-01-15] MEDS ORDERED: cefTRIAXone 1,000 MG VIAL ONE (21:21)
--- NOTE | 2022-01-16 00:30 | NUR ---
SLEEPING , CHEST RISE AND FALL EQUALLY , CALL LIGHT WITHIN REACH . WILL CONT. TO MONITOR .
[2022-01-16] MEDS: NACL 0.9% 1,000 ML IV SCH ×2 (05:30→18:24)
[2022-01-16 05:31] LABS: ALBUMIN 1.6 g/dL (3.4-5.0); ANION GAP 13.8 (8-16); CARBON DIOXIDE 25.3 mmol/L (21-32); CREATININE 1.5 mg/dL (0.6-1.3); MAGNESIUM 1.9 mg/dL (1.8-2.4); POTASSIUM 4.1 mmol/L (3.5-5.1); TOTAL BILIRUBIN 0.1 mg/dL (0.0-1.0)
[2022-01-16 05:36] LABS: MEAN CORPUSCULAR HEMOGLOBIN 26 pg (27-31); MEAN CORPUSCULAR HGB CONC 33 g/dL (33-37); MEAN CORPUSCULAR VOLUME 80.5 fL (80-94); PLATELET COUNT (AUTO) 502 K/uL (140-450); RED BLOOD CELL COUNT(AUTO) 2.12 MIL/uL (4.20-6.10); RED CELL DISTRIBUTION WIDTH 17.8 % (11.6-13.7); WHITE BLOOD COUNT (AUTO) 7.6 K/uL (4.8-10.8)
[2022-01-16 05:45] LABS: HEMOGLOBIN 5.5 g/dL (12.0-18.0)
--- NOTE | 2022-01-16 06:00 | NUR ---
C/O PAIN - WILL MEDICATE , BP 131/71 , MA 85
[2022-01-16 06:24] LABS: BASOPHILS % (AUTO) 0.6 % (0.0-2.0); EOSINOPHILS # (AUTO) 0.3 K/uL (0-0.4); EOSINOPHILS % (AUTO) 4.4 % (0.0-4.0); LYMPHOCYTES # (AUTO) 1.2 K/uL (2.0-11.5); MONOCYTES # (AUTO) 0.6 K/uL (0.8-1.0); MONOCYTES % (AUTO) 7.4 % (1.7-9.3); NEUTROPHILS # (AUTO) 5.6 K/uL (1.8-7.7); NEUTROPHILS % (AUTO) 72.6 % (42.2-75.2)
--- NOTE | 2022-01-16 06:30 | NUR ---
HGB 5.5 - RELAYED TO DOCTOR INSPECTOR DIALS C/O GARRETT - PER DOCTOR - TRANSFUSE 2 PRBC - WILL CARRY OUT .
[2022-01-16] MEDS: MORPHINE SULFATE 4 MG/ML SYR IVP PRN ×4 (06:58→19:58)
--- NOTE | 2022-01-16 07:22 | NUR ---
ENDORSED - PT - STABLE . Addendum: 01/16/22 at 0800 by Tamica Mijares RN W/ BT CONSENT SIGNED BY PT .
[2022-01-16 08:00] VITALS: BP 97/48
[2022-01-16] MEDS: DOCUSATE SODIUM 100 MG GELCAP PO SCH (09:43)
[2022-01-16] MEDS: HYDROcodone/APAP 5/325 MG 1 TAB TAB PO PRN (09:55)
[2022-01-16 12:00] VITALS: BP 101/51
[2022-01-16] MEDS ORDERED: PIPERACILLIN/TAZOBACTAM 3.375 GM in DEXTROSE 5% 50 ML IV SCH (13:00)
[2022-01-16] MEDS: MEROPENEM 500 MG in NACL 0.9% 50 ML IV SCH ×2 (15:20→19:58)
[2022-01-16 19:36] LABS: HEMATOCRIT 27.4 % (36-52); HEMOGLOBIN 8.9 g/dL (12.0-18.0)
--- NOTE | 2022-01-16 20:00 | NUR ---
OPENING NOTE PT IN BED AOX4. PT ON R/A WITH SAT'S @ 98%. PT SR AND VSS FOR THIS PT. PT HAS F/C WITH DARK DAYNA COLOR URINE DRAINING TO GRAVITY. PT REPORTS PAIN A 9/10 FROM THE BUTTOCK AREA. PT HAS SEVERE CONTRACTIONS IN BILAT UPPER AND LOWER EXTREMITIES. PT AWARE OF SURGERY IN AM AND REINFORCED TO PT THAT HE WILL BE NPO AFTER MIDNIGHT AND PT AGREED. ALL SAFETY PRECAUTIONS IN PLACE. WILL CONTINUE TO MONITOR.
--- NOTE | 2022-01-16 22:05 | NUR ---
PAIN PT REPORTS PAIN 10/10. PT GIVEN MORPHINE IVP ORDERED FOR PAIN
[2022-01-16 22:39] VITALS: BP 105/55
--- NOTE | 2022-01-17 | NUR ---
ROUNDS PATIENT IS LYING IN BED ASLEEP AT THIS TIME. NO COMPLAIN OF PAIN OR SHORTNESS OF BREATH NOTED AT THIS TIME, VITAL SIGN IS WITHIN THE NORMAL RANGE, CALL LIGHT IS WITHIN REACH, WILL CONTINUE TO MONITOR PATIENT
[2022-01-17] MEDS: MEROPENEM 500 MG in NACL 0.9% 50 ML IV SCH ×3 (05:00→20:21)
[2022-01-17] MEDS: NACL 0.9% 1,000 ML IV SCH ×2 (06:30→19:10)
[2022-01-17] MEDS ORDERED: BUPIVACAINE-MPF 0.25% 30 ML VIAL INJ ONE (06:54)
[2022-01-17] MEDS ORDERED: LIDOCAINE/EPI MPF 1%1:200000 30 ML VIAL INJ ONE (06:54)
[2022-01-17 07:36] LABS: BASOPHILS # (AUTO) 0.1 K/uL (0.00-0.22); BASOPHILS % (AUTO) 0.7 % (0.0-2.0); EOSINOPHILS # (AUTO) 0.4 K/uL (0-0.4); EOSINOPHILS % (AUTO) 4.6 % (0.0-4.0); HEMATOCRIT 24.9 % (36-52); HEMOGLOBIN 8.2 g/dL (12.0-18.0); LYMPHOCYTES # (AUTO) 1.1 K/uL (2.0-11.5); LYMPHOCYTES % (AUTO) 12.3 % (20.5-51.1); MEAN CORPUSCULAR HEMOGLOBIN 28 pg (27-31); MEAN CORPUSCULAR HGB CONC 33 g/dL (33-37); MEAN CORPUSCULAR VOLUME 85.4 fL (80-94); MONOCYTES # (AUTO) 0.6 K/uL (0.8-1.0); MONOCYTES % (AUTO) 7.2 % (1.7-9.3); NEUTROPHILS # (AUTO) 6.5 K/uL (1.8-7.7); NEUTROPHILS % (AUTO) 75.2 % (42.2-75.2); PLATELET COUNT (AUTO) 508 K/uL (140-450); RED BLOOD CELL COUNT(AUTO) 2.91 MIL/uL (4.20-6.10); RED CELL DISTRIBUTION WIDTH 19.1 % (11.6-13.7); WHITE BLOOD COUNT (AUTO) 8.7 K/uL (4.8-10.8)
[2022-01-17 07:56] LABS: ALBUMIN 1.6 g/dL (3.4-5.0); ANION GAP 12.7 (8-16); CREATININE 1.2 mg/dL (0.6-1.3); MAGNESIUM 1.8 mg/dL (1.8-2.4); POTASSIUM 3.7 mmol/L (3.5-5.1); TOTAL BILIRUBIN 0.2 mg/dL (0.0-1.0)
[2022-01-17] MEDS ORDERED: SUCCINYLCHOLINE CHLORIDE 200 MG/10 ML VIAL IVP ONE (08:30)
[2022-01-17] MEDS ORDERED: ONDANSETRON 4 MG/2 ML VIAL ONE (08:30)
[2022-01-17] MEDS ORDERED: KETOROLAC 30 MG/ML VIAL ONE (08:30)
[2022-01-17] MEDS ORDERED: PROPOFOL 200 MG/20 ML VIAL IV ONE (08:30)
--- NOTE | 2022-01-17 08:45 | NUR ---
PATIENT HAS BEEN SCREENED AND CATEGORIZED HIGH NUTRITION RISK. PATIENT WILL BE SEEN WITHIN 1-2 DAYS OF ADMISSION. 01/16/22-01/17/22 REVIEWED BY CHARO MORRIS RD
[2022-01-17] MEDS ORDERED: LACTATED RINGERS 1,000 ML IV SCH (09:00)
[2022-01-17] MEDS ORDERED: LABETALOL 20 MG/4 ML VIAL IVP PRN (09:00)
[2022-01-17] MEDS ORDERED: hydrALAZINE 20 MG/ML VIAL IVP PRN (09:00)
[2022-01-17] MEDS: DOCUSATE SODIUM 100 MG GELCAP PO SCH (09:00)
[2022-01-17] MEDS ORDERED: METOCLOPRAMIDE 10 MG/2 ML INJ VIAL IVP PRN (09:00)
--- NOTE | 2022-01-17 09:49 | NUR ---
PATIENT RETURN FROM OR DEBRIDEMENT PROCEDURE WITH 2 SURGERY SITES AT L. BUTTOCK CHEEK, 2 SURGERY DEBRIDEMENT SITES AT COCCYX, AND 1 SURGERY SITE AT R. BUTTOCK CHEEK. PATIENT STABLE AT THIS TIME. WILL CONTINUE TO MONITOR
[2022-01-17] MEDS: MORPHINE SULFATE 4 MG/ML SYR IVP PRN ×2 (13:05→19:14)
[2022-01-17] MEDS: SENNA 8.6 MG TAB PO SCH ×2 (13:14→17:20)
--- NOTE | 2022-01-17 14:12 | NUR ---
01/17/22 RD INITIAL ASSESSMENT COMPLETED PLEASE REFER TO NUTRITION ASSESSMENT UNDER CARE ACTIVITY FOR ESTIMATED NUTRITIONAL NEEDS. 1. CONTINUE REGULAR DIET TOLERATED -RECOMMEND ENSURE 1X/DAY AND PROSOURCE BID 2. MONITOR NUTRITION RELATED LAB VALUES - IF RENAL LAB VALUES DECLINE, RECOMMEND ADJUSTING ORAL SUPPLEMENTS (ENSURE AND/OR PROSOURCE). 3. RD TO FOLLOW-UP 3-5 DAYS, MODERATE RISK REVIEWED BY YA MORRIS RD
[2022-01-17 16:00] VITALS: BP 115/68
--- NOTE | 2022-01-17 19:52 | NUR ---
ENDORSE PATIENT TO PM SHIFT NURSE WHILE PATIENT REST ON BED, PIV L. FOREARM INFUSING NS @80ML/HR, JUST MORPHINE FOR PAIN. NO ACUTE DISTRESS.
--- NOTE | 2022-01-17 19:55 | NUR ---
RECEIVED PT FROM AM NURSE FOR CONTINUITY OF CARE. PT IS STABLE
[2022-01-17] MEDS: POLYETHYLENE GLYCOL 17 GM/PKT PO SCH (20:26)
--- NOTE | 2022-01-17 21:31 | NUR ---
ALL MEDICATIONS GIVEN,NO ADVERSE REACTIONS NOTED
[2022-01-18 04:00] VITALS: BP 146/73
[2022-01-18] MEDS: MEROPENEM 500 MG in NACL 0.9% 50 ML IV SCH ×3 (04:45→20:33)
[2022-01-18 05:43] LABS: ALBUMIN 1.5 g/dL (3.4-5.0); ANION GAP 13.1 (8-16); CARBON DIOXIDE 23.3 mmol/L (21-32); CREATININE 1.4 mg/dL (0.6-1.3); MAGNESIUM 1.8 mg/dL (1.8-2.4); POTASSIUM 4.4 mmol/L (3.5-5.1); TOTAL BILIRUBIN 0.1 mg/dL (0.0-1.0)
[2022-01-18 05:58] LABS: BASOPHILS % (AUTO) 0.5 % (0.0-2.0); EOSINOPHILS # (AUTO) 0.4 K/uL (0-0.4); EOSINOPHILS % (AUTO) 6.2 % (0.0-4.0); HEMATOCRIT 24.5 % (36-52); LYMPHOCYTES # (AUTO) 0.9 K/uL (2.0-11.5); LYMPHOCYTES % (AUTO) 13.1 % (20.5-51.1); MEAN CORPUSCULAR HEMOGLOBIN 28 pg (27-31); MEAN CORPUSCULAR HGB CONC 33 g/dL (33-37); MONOCYTES # (AUTO) 0.6 K/uL (0.8-1.0); NEUTROPHILS # (AUTO) 5.1 K/uL (1.8-7.7); NEUTROPHILS % (AUTO) 72.2 % (42.2-75.2); PLATELET COUNT (AUTO) 510 K/uL (140-450); RED BLOOD CELL COUNT(AUTO) 2.85 MIL/uL (4.20-6.10); RED CELL DISTRIBUTION WIDTH 19.6 % (11.6-13.7); WHITE BLOOD COUNT (AUTO) 7.1 K/uL (4.8-10.8)
--- NOTE | 2022-01-18 06:00 | NUR ---
PATIENT ASLEEP, NO S/SX OF DISTRESS NOTED
[2022-01-18] MEDS: NACL 0.9% 1,000 ML IV SCH ×2 (06:40→20:00)
--- NOTE | 2022-01-18 07:10 | NUR ---
RECEIVED REPORT FROM TEXTILES SALES REPRESENTATIVE NURSE FOR CONTINUITY OF CARE. PATIENT AWAKE NO DISTRESS DENIES PATIENT . RESPIRATION EVEN AND NOT LABORED NO SHORTNESS OF BREATH. IV SITE ON RIGHT FORE ARM AND LEFT WRIST RENAN 22 RUNNING NS AT 100 CC/HOUR. DEL CID CATHETER DRAINING WITH YELLOW URINE.
--- NOTE | 2022-01-18 07:10 | NUR ---
GAVE REPORT TO BARREL BUNG REMOVER AND DUMPER NURSE FOR CONTINUITY OF CARE.
--- NOTE | 2022-01-18 07:20 | NUR ---
ENDORSED PT TO AM NURSE FOR CONTINUITY OF CARE. PT IS STABLE
[2022-01-18] MEDS: DOCUSATE SODIUM 100 MG GELCAP PO SCH (08:51)
[2022-01-18] MEDS: HYDROcodone/APAP 5/325 MG 1 TAB TAB PO PRN ×2 (08:51→16:47)
[2022-01-18] MEDS: SENNA 8.6 MG TAB PO SCH ×3 (08:52→18:51)
[2022-01-18] MEDS: POLYETHYLENE GLYCOL 17 GM/PKT PO SCH ×2 (08:56→20:42)
--- NOTE | 2022-01-18 10:02 | NUR ---
PATIENT ALERT CALL FOR PAIN MEDIATION GIVEN AND ALSO GIVEN ALL DUE MEDICATION. FINISHED EATING HIS BREAKFAST TOLERATED WELL. CALL LIGHT WITH IN EASY REACH. CONTACT ISOLATION OBSERVE.
[2022-01-18 12:00] VITALS: BP 141/79
[2022-01-18] MEDS: GAUZE TP SCH (13:00)
[2022-01-18] MEDS: Z-GUARD PASTE TP SCH (13:00)
[2022-01-18] MEDS: THERAHONEY GEL 42.5 GM TP SCH (13:00)
--- NOTE | 2022-01-18 13:00 | NUR ---
PATIENT EAT LUNCH AND DEL CID CATHETER DRAINING WELL WITH YELLOW URINE. CALL LIGHT WITH IN EASY REACH.
--- NOTE | 2022-01-18 14:45 | NUR ---
DC PLANNING SW MET WITH PATIENT AT BEDSIDE FOR THE PURPOSE OF DISCUSSING AND COMPLETING ASSESSMENT. PATIENT REPORTS LIVING AT HOME, ALONE IN A FIRST FLOOR APT AT [facility]. PATIENT REPORTS MAURISIO SARAVIA (SISTER) [phone] AND RANDAL CAN [id number] , EMERGENCY CONTACT. PATIENT DENIES AD IN PLACE AND DECLINED AD OFFERED BY [facility]. PATIENT REPORTS MEETING WITH PCP CONSISTENTLY AND REPORTS LAST VISIT TELEPHONE APPT 3-4 WEEKS PRIOR. PATIENT REPORTS BEING MEDICATION COMPLIANT AND DENIED BARRIERS IN ACQUIRING MEDICATION. PATIENT RECEIVES MEDICATION FROM [facility] IN [place], WHEN NEEDED. PATIENT REPORTS RECEIVING 200 I[facility]SS HRS MONTHLY AND REPORTS THREE IHSS WORKERS ANDREY, TOM,AND SUSANNE. PATIENT UNABLE TO RECALL IHSS WORKERS PHONE NUMBER. PATIENT REPORTS RECEIVING CARE FROM TUESDAY- TUESDAY, WHERE THE THREE IHSS CAREGIVERS ROTATE THROUGHOUT THE DAY IN PROVIDING CARE. PATIENT REPORTS BEING HAPPY WITH IHSS CAREGIVERS AND REPORTS NO ISSUES OR CONCERNS. PATIENT REPORTS HE IS ADEQUATELY CARED FOR. PRIOR TO ADMISSION PATIENT WAS RECEIVING HOME HEALTH SERVICES WITH MODEL. PATIENT REPORTS DME AN ELECTRIC WHEELCHAIR/SCOOTER WHEN NEEDED, HOWEVER IS PRIMARILY BED BOUND AND REQUIRES ASSISTANCE WITH ALL ADL'S . PATIENT REPORTS ADEQUATE FRIEND AND FAMILY SUPPORT SISTERS ARE HIGHLY INVOLVED. PATIENT REPORTS THAT TENTATIVE PLAN IS TO DC HOME ONCE CLEARED FOR DC . SW INQUIRED ON RESOURCES NEEDED; PATIENT DECLINED AT THIS TIME. Addendum: 01/19/22 at 1319 by Jennifer Mckeon [facility]ION[facility] SPOKE WITH PATIENTS MAURISIO WHO REPORTS CONCERNS THAT PATIENT IS NOT BEING ADEQUATELY CARED FOR BY IHSS CAREGIVERS. MAURISIO REPORTS BEING UNHAPPY WITH THE CARE THAT HER BROTHER IS RECEIVING BASED ON HIS WOUNDS. MAURISIO REPORTS SHE HAS MADE APS REPORT 3-4 WEEKS AGO. LIONEL CALLED [facility] TO FILE REPORT ON CONCERNS OF PATIENTS WOUNDS AND CARE PROVIDED BY [facility] CAREGIVERS AND RELAYED INFORMATION PROVIDED BY PATIENTS SISTER. SPOKE WITH ESTELA AND PROVIDED ALL NECESSARY INFORMATION NEEDED. FILE REPORT # [id number] Addendum: 01/19/22 at 1529 by Jennifer GARCIA FIELDED CALL FROM AFSHAN CRUZ [phone], DEPT OF AGING AND ADULT SERVICES, [facility] LIONEL. SPOKE TO AFSHAN ABOUT CONCERNS. AFSHAN REPORTS SHE IS AWARE. SW TO CALL AND PROVIDE UPDATE OF ACCEPTING SNF ONCE PLACED.
--- NOTE | 2022-01-18 15:35 | NUR ---
WOUND CARE EVALUATION NOTE: SKIN ASSESSMENT DONE WITH THIS 66 Y/O PT ADMITTED WITH MULTIPLE PRESSURE INJURIES. PT. IS AAX4. PT. ADMITTED WITH LOW JEREMIE SCALE AT HIGH RISK. MULTIPLE PRESSURE INJURY WOUNDS WITH GANGRENE INFECTED WOUNDS. S/P DEBRIDEMENT CX. PENDING. POC DISCUSSED WITH PT. AND RECOMMENDATIONS EXPLAINED INCLUDING SHORT TERM SNF WOUND CARE. PT. VERBALIZES UNDERSTANDING. SACRAL COCCYX AND BUTTOCKS WITH DISFIGURED SHAPE. BLE AND HEELS WITH MULTIPLE UN-STAGEABLE PAD ULCERS. PRIOR IMAGE STUDY SHOWED PAD. POC DISCUSSED WITH PRIMARY NURSE EVA. CONTINUE TO FOLLOW PRESSURE INJURY PREVENTION INTERVENTIONS. GOAL AT THIS TIME IS TO PREVENT CROSS CONTAMINATION OF FECAL MATERIAL TO SURGICAL WOUNDS. INTEGUMENTARY: -MOISTURE ASSOCIATED DERMATITIS WITH EROSIONS TO POSTERIOR SCROTAL AREA SUPERFICIAL DEPTH. -PRESSURE INJURY UN-STAGEABLE SACRAL COCCYX 7X10X0.5CM WITH 90% OF PADILLA,YELLOW SLOUGH TISSUE, 10% RED GRANULATING TISSUE TOWARD WOUND EDGE, WOUND BED MOIST, NO ODOR, MILAGRO- WOUND SKIN MAD WITH WOUND EDGE CLOSE TO BILATERAL BUTTOCKS/ISCHIAL AREAS. WOUND CARE EVALUATION NOTE: SKIN ASSESSMENT DONE WITH THIS 66 Y/O PT ADMITTED WITH MULTIPLE PRESSURE INJURIES. PT. IS AAX4. PT. ADMITTED WITH LOW JEREMIE SCALE AT HIGH RISK. MULTIPLE PRESSURE INJURY WOUNDS WITH GANGRENE INFECTED WOUNDS. S/P DEBRIDEMENT CX. PENDING. POC DISCUSSED WITH PT. AND RECOMMENDATIONS EXPLAINED INCLUDING SHORT TERM SNF WOUND CARE. PT. VERBALIZES UNDERSTANDING. SACRAL COCCYX AND BUTTOCKS WITH DISFIGURED SHAPE. BLE AND HEELS WITH MULTIPLE UNSTAGEABLE PAD ULCERS. PRIOR IMAGE STUDY SHOWED PAD. POC DISCUSSED WITH PRIMARY NURSE EVA. CONTINUE TO FOLLOW PRESSURE INJURY PREVENTION INTERVENTIONS. INTEGUMENTARY: -MOISTURE ASSOCIATED DERMATITIS WITH EROSIONS TO POSTERIOR SCROTAL AREA SUPERFICIAL DEPTH. -PRESSURE INJURY UNSTAGEABLE SACRAL COCCYX 7X10X0.5CM WITH 90% OF PADILLA,YELLOW SLOUGH TISSUE, 10% RED GRANULATING TISSUE TOWARD WOUND EDGE, WOUND BED MOIST, NO ODOR, MILAGRO- WOUND SKIN MAD WITH WOUND EDGE CLOSE TO BILATERAL BUTTOCKS/ISCHIAL AREAS. -PRESSURE INJURY STAGE 3 RIGHT TROCHANTER 1X1X0.1CM WOUND BED PINK MOIST, NO ODOR, MILAGRO WOUND SKIN HEALED SCAR TISSUE WITH SURROUNDING TISSUE HYPERPIGMENTATION. -PRESSURE INJURY UNSTAGEABLE LEFT LOWER ISCHIUM FULL THICKNESS SKIN LOSS 46N54MM WITH 100% OF PADILLA/YELLOW SLOUGH TISSUE, MOIST, NO ODOR, MILAGRO- WOUND SKIN MOIST , NON-BLANCHABLE REDNESS AND FURTHER DAMAGE INDICATED -PRESSURE INJURY STAGE 3 LEFT TROCHANTER UN-STAGEABLE 1.5X2CM 100 % DRY BROWN ESCHAR TISSUE -PRESSURE INJURY UN-STAGEABLE RIGHT ISCHIUM 9X9.5CM, WOUND BED 100% PADILLA/YELLOW SLOUGH TISSUE, NO ODOR, MILAGRO WOUND SKIN NON-BLANCHABLE REDNESS, SURROUNDING TISSUE MAD, THIN EASILY TO TORN FURTHER DAMAGE INDICATED -PRESSURE INJURY UN-STAGEABLE RIGHT MEDIAL KNEE 4X3CM 100 % BLACK /PADILLA DRY STABLE ESCHAR TISSUE, NO ODOR, MILAGRO- WOUND SKIN NON-BLANCHABLE REDNESS AND FURTHER DAMAGE INDICATED -PRESSURE INJURY UN-STAGEABLE LEFT MEDIAL KNEE 3X3CM 100 % BLACK /PADILLA DRY STABLE ESCHAR TISSUE, NO ODOR, MILAGRO- WOUND SKIN NON-BLANCHABLE REDNESS AND FURTHER DAMAGE INDICATED -PERIPHERE VASCULAR DISEASE RLE ANTERIOR AND LATERAL WITH MULTIPLE BLACK STABLE ESCHAR TISSUE WITH LARGEST MEASUREMENT 3X1CM -PERIPHERE VASCULAR DISEASE LLE ANTERIOR AND LATERAL WITH MULTIPLE BLACK STABLE ESCHAR TISSUE WITH LARGEST MEASUREMENT 2X2CM - PERIPHERE VASCULAR DISEASE RIGHT FEET MULTIPLE UN-STAGEABLE ULCERS 100% BROWN /BLACK ESCHAR WITH LARGEST TO RIGHT LATERAL FOOT 3X1.8CM, RIGHT LATERAL MALLEOLUS 1.5X1.5CM - PERIPHERE VASCULAR DISEASE LEFT FEET MULTIPLE UN-STAGEABLE ULCERS 100% BROWN BLACK ESCHAR WITH LARGEST TO LEFT MEDIAL FOOT 4X1CM, LEFT MEDIAL MALLEOLUS 2X1CM - PERIPHERE VASCULAR DISEASE BILATERAL HEELS 100% BLACK ESCHAR, LEFT 5X3CM AND RIGHT 3X3CM, SKIN MUSHY AND INTACT RECOMMENDATIONS: -APPLY Z GUARD TO GROINS, SCROTAL AND MILAGRO ANAL AREAS BID AND PRN IF SOILING -CLEANSE SACRALCOCCYX, LEFT TROCHANTER, RIGHT TROCHANTER, RIGHT AND LEFT BUTTOCKS/ISCHIAL WOUNDS WITH NS, PAT DRY, APPLY THERAHONEY GEL WITH ADAPTIC DRESSING TO WOUND BED AND COVER WITH ABD PAD DRESSING QD AND PRN IF SOILING -PAINT WITH BETADINE SWAP STICKS TO BILATERAL LE ANKLES, FEET AND HEELS AND GANTRY CRANE OPERATOR -APPLY HEEL RAISERS TO BILATERAL HEELS AND OFFLOADING -POSITIONING: TURN AND REPOSITION PATIENT Q 2H OR SOONER USE PILLOWS TO KEEP BONY PROMINENCES FROM DIRECT CONTACT WITH SURFACES USE REPOSITIONING WEDGES TO PROVIDE 30-DEGREE ANGLE FOR SIDE LYING POSITIONS OFFLOADING OR FOAM DRESSING TO ALL TUBING TO PREVENT MEDICAL DEVICES RELATED PRESSURE INJURY -RE-EVALUATING AND MANAGING INCONTINENCE MONITOR SKIN CONDITION DURING POSITION CHANGE DO NOT MASSAGE REDNESS, BONY PROMINENCES FREQUENT MILAGRO-CARE AND PROVIDE BARRIER CREAMS PRN IF SOILING MOISTURE CONTROL BY OFFER BED VELASQUEZ/URINAL /ABSORBENT PAD TO WICK AND HOLD MOISTURE KEEP SKIN DRY AND PROTECT FROM FRICTION -MANAGE FRICTION/SHEAR/MOBILITY KEEP HOB AT THE LOWEST LEVEL OF ELEVATION NO MORE THAN 30 DEGREE UNLESS OTHERWISE CONTRAINDICATED USE LIFT SHEET OR TRANSFER DEVICE TO MOVE PATIENT AND PREVENT LATERAL SHEER. PROTECT HEELS, ELBOWS BONY PROMINENCES WITH SKIN BERRIES OR FOAM DRESSING IF EXPOSED TO FRICTION OFFLOAD BILATERAL HEELS BY PLACING PILLOWS UNDER CALVES AT ALL TIMES, UNLESS OTHERWISE CONTRAINDICATED -PRESSURE REDISTRIBUTION SURFACE THERAPY ROSS ISOFLEX CATA MATTRESS -NUTRITION: PLEASE FOLLOW RD RECOMMENDATIONS AND OFFER NUTRITION SUPPLEMENTS IF ORDERED. RECOMMENDATIONS: -APPLY Z GUARD TO GROINS, SCROTAL AND MILAGRO ANAL AREAS BID AND PRN IF SOILING -CLEANSE SACRALCOCCYX, LEFT TROCHANTER, RIGHT TROCHANTER, RIGHT AND LEFT BUTTOCKS/ISCHIAL WOUNDS WITH NS, PAT DRY, APPLY THERAHONEY GEL WITH ADAPTIC DRESSING TO WOUND BED AND COVER WITH ABD PAD DRESSING QD AND PRN IF SOILING -PAINT WITH BETADINE SWAP STICKS TO BILATERAL LE ANKLES, FEET AND HEELS AND GANTRY CRANE OPERATOR -APPLY HEEL RAISERS TO BILATERAL HEELS AND OFFLOADING -POSITIONING: TURN AND REPOSITION PATIENT Q 2H OR SOONER USE PILLOWS TO KEEP BONY PROMINENCES FROM DIRECT CONTACT WITH SURFACES USE REPOSITIONING WEDGES TO PROVIDE 30-DEGREE ANGLE FOR SIDE LYING POSITIONS OFFLOADING OR FOAM DRESSING TO ALL TUBING TO PREVENT MEDICAL DEVICES RELATED PRESSURE INJURY -RE-EVALUATING AND MANAGING INCONTINENCE MONITOR SKIN CONDITION DURING POSITION CHANGE DO NOT MASSAGE REDNESS, BONY PROMINENCES FREQUENT MILAGRO-CARE AND PROVIDE BARRIER CREAMS PRN IF SOILING MOISTURE CONTROL BY OFFER BED VELASQUEZ/URINAL /ABSORBENT PAD TO WICK AND HOLD MOISTURE KEEP SKIN DRY AND PROTECT FROM FRICTION -MANAGE FRICTION/SHEAR/MOBILITY KEEP HOB AT THE LOWEST LEVEL OF ELEVATION NO MORE THAN 30 DEGREE UNLESS OTHERWISE CONTRAINDICATED USE LIFT SHEET OR TRANSFER DEVICE TO MOVE PATIENT AND PREVENT LATERAL SHEER. PROTECT HEELS, ELBOWS BONY PROMINENCES WITH SKIN BERRIES OR FOAM DRESSING IF EXPOSED TO FRICTION OFFLOAD BILATERAL HEELS BY PLACING PILLOWS UNDER CALVES AT ALL TIMES, UNLESS OTHERWISE CONTRAINDICATED -PRESSURE REDISTRIBUTION SURFACE THERAPY ROSS ISOFLEX CATA MATTRESS -NUTRITION: PLEASE FOLLOW RD RECOMMENDATIONS AND OFFER NUTRITION SUPPLEMENTS IF ORDERED. Addendum: 01/20/22 at 1259 by Bella Peña RN (Grace) CORRECTION: PRESSURE INJURY UN-STAGEABLE LEFT TROCHANTER 1.5X2CM 100 % DRY , BROWN ESCHAR TISSUE
--- NOTE | 2022-01-18 16:47 | NUR ---
PAATIENT GIVEN PAIN MEDICATION FOR COMPLAIN OF GENERALIZED PAIN.
--- NOTE | 2022-01-18 17:00 | NUR ---
TREATMENT DONE ON ALL HIS WOUND TOLERATED WELL AND PLACE ON WOUND BED. IV RUNNING AT 80 CC/HOURS TOLERATED WELL.
--- NOTE | 2022-01-18 19:15 | NUR ---
GAVE REPORT TO SPECIAL DELIVERY MAIL CARRIER NURSE YA FOR CONTINUITY OF CARE.
--- NOTE | 2022-01-18 19:35 | NUR ---
RECEIVED PT FROM AM NURSE FOR CONTINUITY OF CARE.PT IS STABLE
[2022-01-18 20:00] VITALS: BP 149/81
[2022-01-18] MEDS: MORPHINE SULFATE 4 MG/ML SYR IVP PRN (20:43)
[2022-01-19] MEDS: Z-GUARD PASTE TP SCH ×2 (00:57→13:00)
--- NOTE | 2022-01-19 02:00 | NUR ---
PATIENT ASLEEP,NO S/SX OF DISTRESS NOTED
[2022-01-19 04:00] VITALS: BP 157/89
[2022-01-19] MEDS: MEROPENEM 500 MG in NACL 0.9% 50 ML IV SCH ×2 (04:44→12:59)
[2022-01-19 05:24] LABS: BASOPHILS % (AUTO) 0.5 % (0.0-2.0); EOSINOPHILS # (AUTO) 0.3 K/uL (0-0.4); EOSINOPHILS % (AUTO) 2.7 % (0.0-4.0); HEMATOCRIT 26.4 % (36-52); HEMOGLOBIN 8.6 g/dL (12.0-18.0); LYMPHOCYTES # (AUTO) 0.7 K/uL (2.0-11.5); LYMPHOCYTES % (AUTO) 6.7 % (20.5-51.1); MEAN CORPUSCULAR HEMOGLOBIN 28 pg (27-31); MEAN CORPUSCULAR HGB CONC 32 g/dL (33-37); MEAN CORPUSCULAR VOLUME 85.6 fL (80-94); MONOCYTES # (AUTO) 0.6 K/uL (0.8-1.0); MONOCYTES % (AUTO) 5.6 % (1.7-9.3); NEUTROPHILS # (AUTO) 8.3 K/uL (1.8-7.7); NEUTROPHILS % (AUTO) 84.5 % (42.2-75.2); PLATELET COUNT (AUTO) 518 K/uL (140-450); RED BLOOD CELL COUNT(AUTO) 3.08 MIL/uL (4.20-6.10); RED CELL DISTRIBUTION WIDTH 19.2 % (11.6-13.7); WHITE BLOOD COUNT (AUTO) 9.8 K/uL (4.8-10.8)
--- NOTE | 2022-01-19 06:00 | NUR ---
PATIENT IS AWAKE,NO COMPLAIN OF PAIN, CLEANED AND REPOSITIONED,TOLERATED WELL,NO DISTRESS NOTED
[2022-01-19 06:16] LABS: ALBUMIN 1.6 g/dL (3.4-5.0); ANION GAP 9.1 (8-16); CARBON DIOXIDE 23.7 mmol/L (21-32); CREATININE 1.1 mg/dL (0.6-1.3); MAGNESIUM 1.8 mg/dL (1.8-2.4); POTASSIUM 3.8 mmol/L (3.5-5.1); TOTAL BILIRUBIN 0.2 mg/dL (0.0-1.0)
[2022-01-19 08:00] VITALS: BP 155/84
--- NOTE | 2022-01-19 08:05 | NUR ---
RECEIVED PATIENT, AOX4, RESPIRATIONS EVEN AND UNLABORED ON ROOM AIR. PATIENT REPORTS PAIN IN BILATERAL BUTTOCKS, SACRAL WOUND AREA, TOLERATED BREAKFAST WELL WITH NO NAUSEA/VOMITING. CONTRACTED TO ALL EXTREMITIES. IV TO RIGHT FOREARM, UPDATED PT ON PLAN OF CARE. CLEANED AND REPOSITIONED PATIENT.WILL CONTINUE TO MONITOR.
--- NOTE | 2022-01-19 08:52 | NUR ---
LATE ENTRY- IV ZOSYN DISCONTINUED AT 1837.
[2022-01-19] MEDS: POLYETHYLENE GLYCOL 17 GM/PKT PO SCH ×2 (09:06→21:00)
[2022-01-19] MEDS: DOCUSATE SODIUM 100 MG GELCAP PO SCH (09:09)
[2022-01-19] MEDS: SENNA 8.6 MG TAB PO SCH ×3 (09:10→17:00)
[2022-01-19] MEDS: NACL 0.9% 1,000 ML IV SCH ×2 (09:11→21:00)
[2022-01-19] MEDS: HYDROcodone/APAP 5/325 MG 1 TAB TAB PO PRN ×3 (10:18→19:02)
--- NOTE | 2022-01-19 12:04 | NUR ---
DC PLANNING: PATIENT HAS AN ORDER TO [facility] FOR WOUND CARE. CM SPOKE WITH PATIENT AND PT AGREED AND PREFERRED TO GO TO SNF UNTIL HIS SACRAL WOUND HEALS. PATIENT STATED HE WAS AT [facility] BEFORE AND WOULD LIKE TO GO BACK TO [facility]. FAXED ALL PAPER WORK AND CALLED AND SPOKE WITH [facility] STATED THEY DON'T HAVE A BED TODAY. DC PLANNING AWAITING FOR FINAL WOUND CULTURE. CM TO FOLLOW Addendum: 01/20/22 at 1213 by Qiana Resendez RN DC PLANNING: RECEIVED A CALL FROM [facility] SPOKE WITH [facility] TO FAX TO THE CONTRACTED FACILITY. FAXED TO [facility], [facility], [facility], AND [facility] [place] CM TO FOLLOW Addendum: 01/20/22 at 1427 by Qiana Resendez RN DC PLANNING: RECEIVED A CALL FROM [facility] SPOKE WITH [facility] STATED PATIENT GOT ACCEPTED AT [place] CAN GO TO ROOM 15A # AUTH # [id number] TO GIVE REPORT [phone] ARRANGED TRANSPORT WITH [facility] [phone] GREIGE MENDER TIME 5 PM NOTIFIED EVA QUINTANA.
--- NOTE | 2022-01-19 12:05 | NUR ---
PATIENT RESTING COMFORTABLY IN BED, REPOSITIONED, ASSISTED PT TO HAVE LUNCH, TOLERATED WELL. DEL CID CATHETER DRAINING CLEAR YELLOW URINE. UPDATED PT ON PLAN OF CARE. WILL CONTINUE TO MONITOR.
[2022-01-19] MEDS: THERAHONEY GEL 42.5 GM TP SCH (13:00)
[2022-01-19] MEDS: GAUZE TP SCH (13:00)
--- NOTE | 2022-01-19 13:36 | NUR ---
CM Clinicals faxed to [facility] fax number .
--- NOTE | 2022-01-19 15:00 | NUR ---
WOUND CARE DONE. PATIENT HAD 2X LARGE BOWEL MOVEMENTS. WOUND CARE DONE TO BILATERAL BUTTOCK, SACRAL/COCCYX WOUND, BILATERAL LOWER LEGS AND HEELS. COVERED WITH THERAHONEY/GAUZE WET TO DRY AND ABD PAD, FOAM PAD/GAUZE. PATIENT TOLERATED WELL, REPOSITIONED PATIENT ON SIDE. WILL CONTINUE TO MONITOR.
[2022-01-19 16:00] VITALS: BP 140/76
--- NOTE | 2022-01-19 19:20 | NUR ---
RECEIVED SHIFT REPORT FROM DEJA RAZA (REGISTRY). PATIENT WAS STABLE DURING SHIFT REPORT. PATIENT NOTED IN BED ON HIS RIGHT SIDE BECAUSE OF WOUND ON HIS SACRUM. PATIENT DENIED ANY PAIN/DISCOMFORT. PATIENT WAS BREATHING INDEPENDENTLY ON ROOM AIR WITHOUT INCIDENT. PATIENT WAS ABLE TO EXPLAIN THE REASON WHY HE WAS IN THE HOSPITAL TO HIS OWN UNDERSTANDING. PATIENT WAS ABLE TO REACH CALL LIGHT AND UNDERSTOOD THIS IS THE WAY TO ASK FOR ASSISTANCE. NURSING ENCOURAGED PATIENT TO USE THE CALL LIGHT FOR ALL ASSISTANCE AND NEEDS. SIDE RAILS UP X THREE FOR SAFETY AND COMFORT. [email or web address]
--- NOTE | 2022-01-19 20:00 | NUR ---
COVERING RN (HEBERT) WAS GIVEN A WRITTEN SHIFT REPORT AND ROUTINE IVPB SCHEDULE OF MEDICATIONS FOR THE SHIFT. [email or web address]
--- NOTE | 2022-01-19 20:01 | NUR ---
Patient's Plan of Care was discussed and reviewed with MARIANO: STEPHANIE
--- NOTE | 2022-01-19 21:41 | NUR ---
PATIENT NOTED IN BED ASLEEP. NO NOTED S/S OF PAIN/DISCOMFORT. PATIENT WAS MADE AWARE THAT NURSING WOULD CHECK ON HIM OFTEN BECAUSE HE REQUEST TO HAVE THE DOOR TO HIS ROOM CLOSED TO AVOID BRIGHT LIGHTS TO DISTURB HIS REST. [email or web address]
--- NOTE | 2022-01-19 23:28 | NUR ---
PATIENT COMPLAINED OF MINOR PAIN FROM THE DEL CID CATH. NURSING INQUIRED IF HE WAS DRINKING ENOUGH FLUIDS AND PATIENT STATED NO. NURSING ENCOURAGED FLUID ESPECIALLY WHEN ON ANTIBIOTICS TO KEEP SYSTEM FLUSHED. SIDE EFFECT OF IV MEDICATION CAN BE UTI BUT NO NOTED FEVER, URINE NOTED CLEAR YELLOW, AND NO NOTED FLOATING PARTICLE IN THE URINE BAG. NURSING ALSO REMINDED PATIENT THAT THE DEL CID WAS INSERTED TODAY AND BECAUSE IT IS AN INVASIVE PROCEDURE THE COULD ALSO CONTRIBUTE TO THE MINOR DISCOMFORT. PATIENT WAS OFFERED A PAIN PRN BUT PATIENT DECLINED AND REQUEST MORE WATER. IF DISCOMFORT CONTINUES NURSING WILL NOTIFY MD. [email or web address]
[2022-01-20] MEDS: PIPERACILLIN/TAZOBACTAM 3.375 GM in DEXTROSE 5% 50 ML IV SCH ×3 (00:35→12:13)
[2022-01-20] MEDS: Z-GUARD PASTE TP SCH ×2 (01:00→12:53)
--- NOTE | 2022-01-20 01:32 | NUR ---
PATIENT NOTED IN BED ASLEEP. CALL LIGHT WITHIN REACH FOR ASSISTANCE. NO NOTED S/S OF PAIN/DISCOMFORT. NO NOTED RESPIRATORY DISTRESS. CALL LIGHT WITHIN REACH FOR ASSISTANCE. [email or web address]
--- NOTE | 2022-01-20 02:41 | NUR ---
PATIENT NOTED IN BED ASLEEP. CALL LIGHT WITHIN REACH FOR ASSISTANCE. NO NOTED S/S OF PAIN/DISCOMFORT. NO NOTED RESPIRATORY DISTRESS. CALL LIGHT WITHIN REACH FOR ASSISTANCE BUT NURSING WILL FREQUENT THIS ROOM IN ANTICIPATION OF NEEDS. [email or web address]
[2022-01-20 04:00] VITALS: BP 149/80
[2022-01-20 05:56] LABS: BASOPHILS % (AUTO) 0.4 % (0.0-2.0); EOSINOPHILS # (AUTO) 0.4 K/uL (0-0.4); EOSINOPHILS % (AUTO) 5.2 % (0.0-4.0); HEMATOCRIT 25.4 % (36-52); HEMOGLOBIN 8.3 g/dL (12.0-18.0); LYMPHOCYTES # (AUTO) 1.1 K/uL (2.0-11.5); LYMPHOCYTES % (AUTO) 14.3 % (20.5-51.1); MEAN CORPUSCULAR HEMOGLOBIN 28 pg (27-31); MEAN CORPUSCULAR HGB CONC 33 g/dL (33-37); MEAN CORPUSCULAR VOLUME 85.1 fL (80-94); MONOCYTES # (AUTO) 0.8 K/uL (0.8-1.0); MONOCYTES % (AUTO) 10.3 % (1.7-9.3); NEUTROPHILS # (AUTO) 5.5 K/uL (1.8-7.7); NEUTROPHILS % (AUTO) 69.8 % (42.2-75.2); PLATELET COUNT (AUTO) 520 K/uL (140-450); RED BLOOD CELL COUNT(AUTO) 2.99 MIL/uL (4.20-6.10); RED CELL DISTRIBUTION WIDTH 19.5 % (11.6-13.7); WHITE BLOOD COUNT (AUTO) 7.8 K/uL (4.8-10.8)
--- NOTE | 2022-01-20 06:02 | NUR ---
PATIENT WAS GIVEN PERINEAL CARE WITH INDEPENDENT CARE. PATIENT TOLERATED IT WELL. NO S/S OF PAIN/DISCOMFORT. NO NOTED RESPIRATORY PAIN. [email or web address]
[2022-01-20 06:05] LABS: ALBUMIN 1.6 g/dL (3.4-5.0); ANION GAP 10.5 (8-16); CARBON DIOXIDE 23.2 mmol/L (21-32); CHLORIDE 108 mmol/L (98-107); CREATININE 1.1 mg/dL (0.6-1.3); GFR ARICAN-AMERICAN 86 mL/min (>90); GLUCOSE 94 mg/dL (74-106); MAGNESIUM 1.7 mg/dL (1.8-2.4); POTASSIUM 3.7 mmol/L (3.5-5.1); SODIUM SERUM 138 mmol/L (136-145); TOTAL BILIRUBIN 0.1 mg/dL (0.0-1.0); UREA NITROGEN, BLOOD 21 mg/dL (7-18)
--- NOTE | 2022-01-20 07:14 | NUR ---
ENDORSED PATIENT TO EVA QUINTANA, PATIENT WAS STABLE DURING SHIFT REPORT. [email or web address]
--- NOTE | 2022-01-20 07:47 | NUR ---
RECEIVED REPORT FROM LOCKSTITCH SHOULDER JOINER NURSE KORIN FOR CONTINUITY OF CARE. PATIENT AWAKE VERBALLY RESPONSIVE. RESPIRATION EVEN AND NOT LABORED NO SHORTNESS OF BREATH ON ROOM. IV SITE ON LEFT FORE ARM RENAN 22 RUNNING 80 CC OF NS NO FLUID OVER LOAD NOTED. DEL CID CATHETER DRAINING YELLOW URINE NO HEMATURIA NOTED.ALL SAFETY MEASURE IN PLACE.
[2022-01-20] MEDS: POLYETHYLENE GLYCOL 17 GM/PKT PO SCH (08:34)
[2022-01-20] MEDS: DOCUSATE SODIUM 100 MG GELCAP PO SCH (08:34)
[2022-01-20] MEDS: SENNA 8.6 MG TAB PO SCH ×3 (08:35→17:00)
--- NOTE | 2022-01-20 08:35 | NUR ---
PT HAS LOOSE STOOL SINCE LAST NIGHT AND REFUSED TO HAVE COLACE, MIRALAX AND SENNA.
[2022-01-20] MEDS: NACL 0.9% 1,000 ML IV SCH (08:51)
[2022-01-20] MEDS: HYDROcodone/APAP 5/325 MG 1 TAB TAB PO PRN (09:01)
--- NOTE | 2022-01-20 10:30 | NUR ---
PATIENT HAD BOWEL MOVEMENT I HELP ELECTRICAL ENGINEERING DRAFTING OFFICER CHANGE PATIENT AND DRESSING ON ALL WOUND CHANGE DUE TO SOILAGE. PATIENT TOLERATED WELL.
[2022-01-20] MEDS: GAUZE TP SCH (12:52)
[2022-01-20] MEDS: THERAHONEY GEL 42.5 GM TP SCH (12:52)
--- NOTE | 2022-01-20 12:54 | NUR ---
PT REFUSED SENNA MED ORDERED ROUTINELY. PT STATED " I DONT NEED IT RIGHT NOW". EXPLAINED RISKS AND BENEFITS.
[2022-01-20] MEDS ORDERED: MERO1PIG IV (13:35)
[2022-01-20] MEDS ORDERED: SENN-74 PO (13:35)
[2022-01-20] MEDS ORDERED: POLY17PD46 PO (13:35)
[2022-01-20] MEDS ORDERED: ACET-1182 PO (13:35)
[2022-01-20 14:36] VITALS: BP 155/83
--- NOTE | 2022-01-20 15:22 | NUR ---
GAVE REPORT TO NURSE CLIFTON AT [facility] FOR CONTINUITY OF CARE.
--- NOTE | 2022-01-20 16:00 | NUR ---
WOUND ASSES AND TAKEN PICTURE. ALSO TREATMENT DONE AGAIN. RESIDENT HAD BOWEL MOVEMENT SOFT NOT WATERY.
--- NOTE | 2022-01-20 17:30 | NUR ---
PATIENT COMPLAIN OF PAIN OFFERED NORCO BUT HE REFUSED AND REQUESTED FOR MORPHINE. RN GAVE MORPHINE IV. PATIENT ALSO REFUSED SENNA ORDERED ROUTINELY PATIENT STATED NO MORE i'M CLEANED UP REALLY WELL INSIDE.
--- NOTE | 2022-01-20 17:33 | NUR ---
C/O PAIN BP 133/84 , HR 85 , O2 SAT 98 % - WILL MEDICATE .
[2022-01-20] MEDS: MORPHINE SULFATE 4 MG/ML SYR IVP PRN (17:38)
--- NOTE | 2022-01-20 17:49 | NUR ---
PT IN STABLE CONDITION. REMOVED NAME BAND. PT IV SITE ON L F/A INTACT, NO S/S OF INFECTION. DISCHARGED PAPER GIVEN WITH INSTRUCTION PT UNABLE TO SIGN BUT VERBALIZED UNDERSTANDING. ALL BELONGINGS SENT WITH PT. WHEELED OFF IN [facility] TO BE TRANSPORTED TO [facility].
== END 2022-01-20 17:50 | DRG 673 ==
LOC: MED 10:17 → MMU 17:04 → MTU 18:02
PROVIDERS: ADMIT Hospitalist; ATTEND Hospitalist
PROC: 30233N1 Transfusion of Nonautologous Red Blood Cells into Peripheral Vein, Percutaneous Approach (ICD-10-PCS; 2022-01-16)
PROC: 0JB90ZZ Excision of Buttock Subcutaneous Tissue and Fascia, Open Approach (ICD-10-PCS; 2022-01-17)
PROC: 0JB70ZZ Excision of Back Subcutaneous Tissue and Fascia, Open Approach (ICD-10-PCS; principal; 2022-01-17 07:30)
DX: N13.6 Pyonephrosis (principal); E43 Unspecified severe protein-calorie malnutrition; G82.50 Quadriplegia, unspecified; E11.52 Type 2 diabetes mellitus with diabetic peripheral angiopathy with gangrene; I96 Gangrene, not elsewhere classified; L02.215 Cutaneous abscess of perineum; N17.9 Acute kidney failure, unspecified; Z20.822 Contact with and (suspected) exposure to COVID-19; I48.91 Unspecified atrial fibrillation; D64.9 Anemia, unspecified; N50.3 Cyst of epididymis; T14.8XXA Other injury of unspecified body region, initial encounter; L89.159 Pressure ulcer of sacral region, unspecified stage; L89.329 Pressure ulcer of left buttock, unspecified stage; N50.89 Other specified disorders of the male genital organs; X58.XXXA Exposure to other specified factors, initial encounter; K56.41 Fecal impaction; Z87.440 Personal history of urinary (tract) infections; Z74.01 Bed confinement status; Z79.01 Long term (current) use of anticoagulants; Z79.891 Long term (current) use of opiate analgesic; Z79.899 Other long term (current) drug therapy; Z79.2 Long term (current) use of antibiotics; Y93.89 Activity, other specified; Y92.89 Other specified places as the place of occurrence of the external cause; Y99.8 Other external cause status; Z68.22 Body mass index [BMI] 22.0-22.9, adult; B96.5 Pseudomonas (aeruginosa) (mallei) (pseudomallei) as the cause of diseases classified elsewhere; B95.5 Unspecified streptococcus as the cause of diseases classified elsewhere
CPT/HCPCS: 36415; 36430; 71045; 74018; 76870; 80053; 81001; 83735; 83880; 85018; 85025; 85730; 86886; 86900; 86901; 86920; 87040; 87070; 87075; 87081; 87086; 87205; 93005; 96365; 96375; 99285; J0330; J0696; J1885; J2001; J2185; J2270; J2405; J2543; J2704; J3490; J7030; J7060; P9016; Q0092